=== PATIENT | male | born 1955 | race Caucasian/White ===

== ENCOUNTER → 2016-12-23 | Outpatient (CLI) | payer BC, OTHER ==
[2016-12-23 10:37] LABS: FREE T4 1.12 NG/DL (0.76-1.46)
== END ==
LOC: M LAB 08:44
PROVIDERS: ATTEND Internal Medicine Cardiovascular Disease
DX: E07.9 Disorder of thyroid, unspecified (principal)

== ENCOUNTER → 2017-02-03 | Outpatient (CLI) | payer BC, OTHER ==
[2017-02-03 07:43] LABS: MEAN CORPUSCULAR HGB CONC 32.7 g/dl (32.0-36.5); MEAN CORPUSCULAR VOLUME 88.5 fl (80.0-96.0); RED CELL DISTRIBUTION WIDTH 13.8 % (11.5-14.5); WHITE BLOOD COUNT 6.3 K/mm3 (4.0-10.0)
[2017-02-03 08:20] LABS: ANION GAP 7 MEQ/L (8-16); BLOOD UREA NITROGEN 14 MG/DL (7-18); CALCIUM LEVEL 9.3 MG/DL (8.5-10.1); CARBON DIOXIDE LEVEL 32 MEQ/L (21-32); CHLORIDE LEVEL 102 MEQ/L (98-107); CREATININE FOR GFR 1.19 MG/DL (0.70-1.30); GLOMERULAR FILTRATION RATE > 60.0 (>56); GLUCOSE, FASTING 105 MG/DL (70-105); MAGNESIUM LEVEL 2.2 MG/DL (1.8-2.4); POTASSIUM SERUM 4.3 MEQ/L (3.5-5.1); SODIUM LEVEL 141 MEQ/L (136-145)
== END ==
LOC: M LAB 06:53
PROVIDERS: ATTEND Internal Medicine Cardiovascular Disease
DX: I25.5 Ischemic cardiomyopathy (principal); Z95.810 Presence of automatic (implantable) cardiac defibrillator; Z86.74 Personal history of sudden cardiac arrest; I25.10 Atherosclerotic heart disease of native coronary artery without angina pectoris

== ENCOUNTER 2017-08-13 12:14 | Outpatient (CLI) | payer BC, OTHER ==
[~2017-08-13] VITALS: Ht 165.1 cm; Wt 97.5 kg
[~2017-08-13 12:14] MED LIST: AMIO200T PO; ASPI1TAB PO; ATOR40TA75 PO; ENAL10TA2 PO; MAGN200T PO; METO1TAB7 PO; PRIL20TA2 PO
[2017-08-13] MEDS ORDERED: NS 1,000 ML IV ONE (13:30)
[2017-08-13] MEDS ORDERED: PROPOFOL 200 MG/20 ML VIAL As Ordered ONE (13:38)
[2017-08-13] MEDS ORDERED: LIDOCAINE 1% MDV 20ML VIAL As Ordered ONE (13:38)
[2017-08-13] MEDS ORDERED: PHENYLephrine HCL 500 MCG/5 ML (100MCG/ML) SYRINGE (J2370) As Ordered ONE (14:02)
--- NOTE | 2017-08-13 14:09 | ROOR ---
Patient Name: Maxwell Crystal Procedure Date: 08/13/2017 1:47 PM Date of : 1955 Age: 61 Room: [facility] Gender: Male Note Status: Finalized Procedure: Colonoscopy Indications: High risk colon cancer surveillance: Personal history of colonic polyps, Last colonoscopy: April 2014 Providers: Christofer DAMON MD Referring MD: KODY GARCIA MD Requesting Provider: Medicines: Monitored Anesthesia Care Complications: No immediate complications. Procedure: Pre-Anesthesia Assessment: - The heart rate, respiratory rate, oxygen saturations, blood pressure, adequacy of pulmonary ventilation, and response to care were monitored throughout the procedure. The Colonoscope was introduced through the anus and advanced to the cecum, identified by appendiceal orifice and ileocecal valve. The colonoscopy was performed without difficulty. The patient tolerated the procedure well. The quality of the bowel preparation was good. Findings: The perianal and digital rectal examinations were normal. A diminutive polyp was found in the mid ascending colon. The polyp was sessile. The polyp was removed with a cold snare. Resection and retrieval were complete. Multiple medium-mouthed diverticula were found in the sigmoid colon and descending colon. Small Internal Hemorrhoids. The exam was otherwise without abnormality on direct and retroflexion views. Impression: - One diminutive polyp in the mid ascending colon, removed with a cold snare. Resected and retrieved. - Mild diverticulosis in the sigmoid colon and in the descending colon. - Small Internal Hemorrhoids. - The examination was otherwise normal on direct and retroflexion views. Recommendation: - Repeat colonoscopy in 5 years for surveillance based on personal history of previous adenomatous polyps. Christofer Damon MD Christofer DAMON MD 08/13/2017 2:08:40 PM This report has been signed electronically. Number of Addenda: 0 Note Initiated On: 08/13/2017 1:47 PM Estimated Blood Loss: Estimated blood loss: none.
[2017-08-13 14:43] VITALS: BP 137/77
== END 2017-08-13 14:47 | disposition home or self-care (01) ==
LOC: M OPP 12:14
PROVIDERS: ATTEND Internal Medicine Gastroenterology
DX: Z12.11 Encounter for screening for malignant neoplasm of colon (principal); Z86.010 Personal history of colon polyps; D12.2 Benign neoplasm of ascending colon; K57.30 Diverticulosis of large intestine without perforation or abscess without bleeding; K64.8 Other hemorrhoids; I10 Essential (primary) hypertension; E78.5 Hyperlipidemia, unspecified; Z95.5 Presence of coronary angioplasty implant and graft; Z95.810 Presence of automatic (implantable) cardiac defibrillator; Z86.74 Personal history of sudden cardiac arrest; R12 Heartburn; R06.83 Snoring; Z79.82 Long term (current) use of aspirin; Z79.899 Other long term (current) drug therapy; Z80.1 Family history of malignant neoplasm of trachea, bronchus and lung
CPT/HCPCS: 45385; 88305; J2370

== ENCOUNTER → 2018-02-01 | Outpatient (CLI) | payer BC, OTHER ==
[2018-02-01 08:25] LABS: ANION GAP 9 MEQ/L (8-16); BLOOD UREA NITROGEN 22 MG/DL (7-18); CALCIUM LEVEL 9.1 MG/DL (8.8-10.2); CARBON DIOXIDE LEVEL 27 MEQ/L (21-32); CHLORIDE LEVEL 107 MEQ/L (98-107); CREATININE FOR GFR 1.21 MG/DL (0.70-1.30); GLOMERULAR FILTRATION RATE > 60.0 (>49); GLUCOSE, FASTING 128 MG/DL (70-100); NT-PRO BNP 314 PG/ML (<125); POTASSIUM SERUM 4.3 MEQ/L (3.5-5.1); SODIUM LEVEL 143 MEQ/L (136-145)
== END ==
LOC: M LAB 06:47
DX: I42.9 Cardiomyopathy, unspecified (principal)

== ENCOUNTER → 2018-10-15 | Outpatient (CLI) | payer BC, OTHER | LOC: M WUC 15:35 | DX: J84.10 Pulmonary fibrosis, unspecified (principal); R06.00 Dyspnea, unspecified; Z95.0 Presence of cardiac pacemaker | CPT/HCPCS: 71046 ==

== ENCOUNTER → 2018-12-10 | Outpatient (CLI) | payer BC, OTHER ==
[2018-12-10 13:11] LABS: BLOOD UREA NITROGEN 15 MG/DL (7-18); CALCIUM LEVEL 9.3 MG/DL (8.8-10.2); CARBON DIOXIDE LEVEL 29 MEQ/L (21-32); CHLORIDE LEVEL 105 MEQ/L (98-107); CREATININE FOR GFR 1.02 MG/DL (0.70-1.30); GLOMERULAR FILTRATION RATE > 60.0 (>49); GLUCOSE, FASTING 110 MG/DL (70-100); MAGNESIUM LEVEL 2.6 MG/DL (1.8-2.4); POTASSIUM SERUM 4.4 MEQ/L (3.5-5.1); SODIUM LEVEL 141 MEQ/L (136-145)
== END ==
LOC: M SMT 09:32
PROVIDERS: ATTEND Internal Medicine Cardiovascular Disease
DX: I47.2 Ventricular tachycardia (principal)

== ENCOUNTER → 2019-02-14 | Outpatient (CLI) | payer BC, OTHER ==
[~2019-02-14] MED LIST changes: -ASPI1TAB PO; +ASPI81TA26 PO
[2019-02-14 17:34] LABS: ALBUMIN 4.1 GM/DL (3.2-5.2); ALT/SGPT 31 U/L (12-78); BILIRUBIN,TOTAL 0.5 MG/DL (0.2-1.0); BLOOD UREA NITROGEN 17 MG/DL (7-18); CARBON DIOXIDE LEVEL 30 MEQ/L (21-32); CHLORIDE LEVEL 105 MEQ/L (98-107); GLOMERULAR FILTRATION RATE > 60.0 (>49); GLUCOSE, FASTING 110 MG/DL (70-100); MAGNESIUM LEVEL 2.4 MG/DL (1.8-2.4); POTASSIUM SERUM 4.7 MEQ/L (3.5-5.1); SODIUM LEVEL 141 MEQ/L (136-145); TOTAL PROTEIN 7.1 GM/DL (6.4-8.2)
[2019-02-14 17:39] LABS: BASO % 0.6 % (0.0-1.0); EOS # 0.1 10^3/uL (0.0-0.50); EOS % 1.2 % (0.0-3.0); HEMATOCRIT 50.5 % (42.0-52.0); HEMOGLOBIN 15.9 g/dl (13.5-17.5); LYMPH # 1.9 10^3/uL (1.5-4.5); LYMPH % 26.6 % (24.0-44.0); MEAN CORPUSCULAR HEMOGLOBIN 28.6 pg (27.0-33.0); MEAN CORPUSCULAR HGB CONC 31.5 g/dl (32.0-36.5); MONO # 0.9 10^3/uL (0.0-0.8); MONO % 11.9 % (0.0-5.0); NEUTROPHILS # 4.3 10^3/uL (1.8-7.7); NEUTROPHILS % 59.4 % (36.0-66.0); PLATELET COUNT, AUTOMATED 284 10^3/uL (150-450); RED BLOOD COUNT 5.55 10^6/uL (4.30-6.10); WHITE BLOOD COUNT 7.2 10^3/uL (4.0-10.0)
== END ==
LOC: M WUC 15:13
PROVIDERS: ATTEND Internal Medicine Cardiovascular Disease
DX: I44.7 Left bundle-branch block, unspecified (principal)

== ENCOUNTER → 2019-03-14 | Outpatient (CLI) | payer BC, OTHER ==
--- NOTE | 2019-03-15 07:10 | REP ---
Clinical: Follow up abnormal lung findings. Technique: Axial noncontrast images from the thoracic inlet to the upper abdomen with coronal and sagittal re-formations. Comparison: None. Findings: The bilateral lung park are relatively well aerated, symmetric and essentially clear. Minimal chronic-appearing fibroatelectatic changes at the lingula and adjacent anterior left lower lobe are appreciated. No consolidation, significant nodule or mass lesion identified. No pleural effusion. No pneumothorax. Tracheobronchial tree is patent. No bronchiectasis. No obvious hilar, mediastinal or axillary adenopathy. Mediastinum demonstrates normal thoracic aorta. Heart is upper limits of normal and demonstrates atherosclerotic changes to the coronary arteries and pacemaker. No pericardial effusion. Surrounding musculoskeletal structures are intact. Limited upper abdomen demonstrates cholelithiasis. Impression: No obvious acute cardiopulmonary process appreciated. Electronically Signed by Aston Moreira MD 03/15/2019 07:02 A
== END ==
LOC: M RAD 12:47
PROVIDERS: ATTEND Physician Assistant
DX: R91.8 Other nonspecific abnormal finding of lung field (principal); I25.10 Atherosclerotic heart disease of native coronary artery without angina pectoris; Z95.0 Presence of cardiac pacemaker

== ENCOUNTER → 2019-10-17 | Outpatient (CLI) | payer BC, OTHER ==
--- NOTE | 2019-10-17 15:10 | REP ---
Four views chest: 10/17/2019. Indication: Arrhythmia. Comparison: CT chest dated 03/14/2019 and two-view chest dated 10/15/2019. Findings: There is no air space consolidation, pleural effusion or pneumothorax. Cardiomediastinal silhouette is unremarkable. Left-sided pacer is present with the leads intact. Impression: No acute cardiopulmonary process. Electronically Signed by Joseph Sue DO 10/17/2019 03:02 P
== END ==
LOC: M RAD 14:34
PROVIDERS: ATTEND Internal Medicine Cardiovascular Disease
DX: T82.1 Mechanical complication of cardiac electronic device (principal); X58.XXXD Exposure to other specified factors, subsequent encounter

== ENCOUNTER → 2019-10-31 | Outpatient (CLI) | payer BC, OTHER ==
[2019-10-31 17:55] LABS: BLOOD UREA NITROGEN 15 MG/DL (7-18); CALCIUM LEVEL 9.5 MG/DL (8.8-10.2); CARBON DIOXIDE LEVEL 28 MEQ/L (21-32); CHLORIDE LEVEL 104 MEQ/L (98-107); CREATININE FOR GFR 0.91 MG/DL (0.70-1.30); GLOMERULAR FILTRATION RATE > 60.0 (>49); GLUCOSE, FASTING 96 MG/DL (70-100); POTASSIUM SERUM 4.3 MEQ/L (3.5-5.1); SODIUM LEVEL 143 MEQ/L (136-145)
[2019-10-31 18:07] LABS: HEMATOCRIT 49.6 % (42.0-52.0); HEMOGLOBIN 15.8 g/dl (13.5-17.5); MEAN CORPUSCULAR HEMOGLOBIN 30.1 pg (27.0-33.0); MEAN CORPUSCULAR HGB CONC 31.9 g/dl (32.0-36.5); MEAN CORPUSCULAR VOLUME 94.5 fl (80.0-96.0); PLATELET COUNT, AUTOMATED 250 10^3/uL (150-450); RED BLOOD COUNT 5.25 10^6/uL (4.30-6.10); WHITE BLOOD COUNT 6.7 10^3/uL (4.0-10.0)
== END ==
LOC: M PLALAB 13:08
PROVIDERS: ATTEND Internal Medicine Cardiovascular Disease
DX: T82.120A Displacement of cardiac electrode, initial encounter (principal)

== ENCOUNTER → 2020-01-23 | Outpatient (CLI) | payer OTHER, BC ==
[2020-01-23 13:22] LABS: BLOOD UREA NITROGEN 12 MG/DL (7-18); CALCIUM LEVEL 9.5 MG/DL (8.8-10.2); CARBON DIOXIDE LEVEL 29 MEQ/L (21-32); CHLORIDE LEVEL 107 MEQ/L (98-107); CREATININE FOR GFR 0.93 MG/DL (0.70-1.30); GLOMERULAR FILTRATION RATE > 60.0 (>49); GLUCOSE, FASTING 99 MG/DL (70-100); MAGNESIUM LEVEL 2.3 MG/DL (1.8-2.4); NT-PRO BNP 107 PG/ML (<125); POTASSIUM SERUM 4.7 MEQ/L (3.5-5.1); SODIUM LEVEL 140 MEQ/L (136-145)
== END ==
LOC: M WUC 10:45
PROVIDERS: ATTEND Internal Medicine Cardiovascular Disease
DX: I50.9 Heart failure, unspecified (principal); I48.91 Unspecified atrial fibrillation

== ENCOUNTER → 2020-08-03 | Outpatient (CLI) | payer BC, OTHER ==
[~2020-08-03] MED LIST changes: -AMIO200T PO; +AMIO200T3 PO; +ENAL-36 PO; -ENAL10TA2 PO
[2020-08-03 07:52] LABS: ALBUMIN 3.7 GM/DL (3.2-5.2); ALT/SGPT 23 U/L (12-78); BILIRUBIN,TOTAL 0.9 MG/DL (0.2-1.0); BLOOD UREA NITROGEN 12 MG/DL (7-18); CARBON DIOXIDE LEVEL 28 MEQ/L (21-32); CHLORIDE LEVEL 106 MEQ/L (98-107); CREATININE FOR GFR 0.88 MG/DL (0.70-1.30); GLOMERULAR FILTRATION RATE > 60.0 (>49); GLUCOSE, FASTING 101 MG/DL (70-100); MAGNESIUM LEVEL 2.2 MG/DL (1.8-2.4); NT-PRO BNP 185 PG/ML (<125); POTASSIUM SERUM 4.2 MEQ/L (3.5-5.1); SODIUM LEVEL 141 MEQ/L (136-145); TOTAL PROTEIN 6.5 GM/DL (6.4-8.2)
== END ==
LOC: M LAB 06:25
PROVIDERS: ATTEND Internal Medicine Cardiovascular Disease
DX: I50.42 Chronic combined systolic (congestive) and diastolic (congestive) heart failure (principal); I47.2 Ventricular tachycardia; E78.2 Mixed hyperlipidemia

== ENCOUNTER → 2021-05-30 | Outpatient (CLI) | payer BC, OTHER ==
[2021-05-30 12:56] LABS: ALBUMIN 3.9 GM/DL (3.2-5.2); ALT/SGPT 26 U/L (12-78); BILIRUBIN,TOTAL 0.9 MG/DL (0.2-1.0); BLOOD UREA NITROGEN 12 MG/DL (7-18); CALCIUM LEVEL 9.1 MG/DL (8.8-10.2); CARBON DIOXIDE LEVEL 28 MEQ/L (21-32); CHLORIDE LEVEL 106 MEQ/L (98-107); CHOLESTEROL LEVEL 141 MG/DL (<200); CHOLESTEROL RISK RATIO 2.517 (<5); CREATININE FOR GFR 0.91 MG/DL (0.70-1.30); GLOMERULAR FILTRATION RATE > 60.0 (>49); GLUCOSE, FASTING 101 MG/DL (70-100); HDL CHOLESTEROL 56 MG/DL (>40); LDL CHOLESTEROL 57 MG/DL (<100); NON-HDL-C 85 MG/DL; POTASSIUM SERUM 4.2 MEQ/L (3.5-5.1); SODIUM LEVEL 142 MEQ/L (136-145); TRIGLYCERIDES LEVEL 138 MG/DL (<150)
[2021-05-30 12:57] LABS: THYROID STIMULATING HORMONE 0.425 uIU/ML (0.358-3.740)
== END ==
LOC: M WUC 08:52
PROVIDERS: ATTEND Internal Medicine
DX: E05.90 Thyrotoxicosis, unspecified without thyrotoxic crisis or storm (principal); E78.2 Mixed hyperlipidemia; I10 Essential (primary) hypertension

== ENCOUNTER → 2021-05-30 | Outpatient (CLI) | payer BC, OTHER ==
[2021-05-30 13:00] LABS: ALT/SGPT 26 U/L (12-78); BILIRUBIN,TOTAL 0.9 MG/DL (0.2-1.0); BLOOD UREA NITROGEN 12 MG/DL (7-18); CALCIUM LEVEL 9.3 MG/DL (8.8-10.2); CARBON DIOXIDE LEVEL 27 MEQ/L (21-32); CHLORIDE LEVEL 107 MEQ/L (98-107); CREATININE FOR GFR 0.91 MG/DL (0.70-1.30); GLOMERULAR FILTRATION RATE > 60.0 (>49); GLUCOSE, FASTING 103 MG/DL (70-100); NT-PRO BNP 185 PG/ML (<125); POTASSIUM SERUM 4.3 MEQ/L (3.5-5.1); SODIUM LEVEL 142 MEQ/L (136-145); TOTAL PROTEIN 6.9 GM/DL (6.4-8.2)
== END ==
LOC: M WUC 08:56
PROVIDERS: ATTEND Nurse Practitioner Adult Health
DX: E50 Vitamin A deficiency (principal); I25.5 Ischemic cardiomyopathy; I50.22 Chronic systolic (congestive) heart failure

== ENCOUNTER → 2022-03-06 | Outpatient (CLI) | payer BC, OTHER ==
[~2022-03-06] MED LIST changes: -AMIO200T3 PO; +AMIO200T49 PO
== END ==
LOC: M WUC 15:16
PROVIDERS: ATTEND Physician Assistant
DX: R05.9 Cough, unspecified (principal)

== ENCOUNTER 2022-03-08 10:34 | Emergency (ER) | payer BC, OTHER ==
[~2022-03-08] VITALS: Ht 165.1 cm; Wt 91.4 kg
[2022-03-08] MEDS ORDERED: ENTR1TAB4 PO (10:44)
[2022-03-08] MEDS ORDERED: EZET10TA21 (10:45)
[2022-03-08] MEDS ORDERED: SOTA80TA53 (10:45)
[2022-03-08] MEDS ORDERED: ISOVUE-370 76% 100ML VIAL As Ordered ONE (12:01)
[2022-03-08 12:08] LABS: BASO % 0.3 % (0.0-1.0); EOS # 0.2 10^3/uL (0.0-0.5); EOS % 1.4 % (0.0-3.0); HEMATOCRIT 37.4 % (42.0-52.0); LYMPH # 1.2 10^3/uL (1.5-5.0); LYMPH % 10.4 % (24.0-44.0); MEAN CORPUSCULAR HEMOGLOBIN 29.4 pg (27.0-33.0); MEAN CORPUSCULAR HGB CONC 32.1 g/dl (32.0-36.5); MEAN CORPUSCULAR VOLUME 91.7 fl (80.0-96.0); MONO % 29.1 % (2.0-8.0); NEUTROPHILS # 6.6 10^3/uL (1.5-8.5); NEUTROPHILS % 57.3 % (36.0-66.0); PLATELET COUNT, AUTOMATED 353 10^3/uL (150-450); RED BLOOD COUNT 4.08 10^6/uL (4.30-6.10); WHITE BLOOD COUNT 11.5 10^3/uL (4.0-10.0)
[2022-03-08 12:20] LABS: INR 1.2; PROTHROMBIN TIME 15.6 SECONDS (12.7-14.5)
[2022-03-08 12:21] LABS: PARTIAL THROMBOPLASTIN TIME 37.7 SECONDS (25.9-37.0)
[2022-03-08 12:35] LABS: ALBUMIN 2.4 GM/DL (3.2-5.2); BILIRUBIN,DIRECT 0.4 MG/DL (0.0-0.2); BILIRUBIN,TOTAL 1.1 MG/DL (0.2-1.0); TOTAL PROTEIN 6.2 GM/DL (6.4-8.2)
[2022-03-08 12:54] LABS: MONO # 3.4 10^3/uL (0.0-0.8)
[2022-03-08 17:58] VITALS: BP 143/73
== END 2022-03-08 18:05 | disposition home or self-care (01) ==
LOC: M ED 10:34
DX: R74.01 Elevation of levels of liver transaminase levels (principal); D64.9 Anemia, unspecified; R63.0 Anorexia; R19.7 Diarrhea, unspecified; M79.604 Pain in right leg; M79.605 Pain in left leg; E78.5 Hyperlipidemia, unspecified; K21.9 Gastro-esophageal reflux disease without esophagitis; Z87.442 Personal history of urinary calculi; Z86.79 Personal history of other diseases of the circulatory system; Z95.0 Presence of cardiac pacemaker; Z79.899 Other long term (current) drug therapy
CPT/HCPCS: 36415; 71046; 74177; 76705; 80047; 80076; 81001; 83690; 83880; 85025; 85610; 85730; 86850; 86900; 86901; 87486; 87581; 87633; 87798; 93005; 93970; 99284; Q9967

== ENCOUNTER → 2022-03-11 | Outpatient (REF) | payer BC, OTHER ==
[~2022-03-11] MED LIST changes: +ENTR1TAB4 PO; +EZET10TA21; +SOTA80TA53
== END ==
LOC: M LAB REF 12:49
PROVIDERS: ATTEND Emergency Medicine
DX: R19.7 Diarrhea, unspecified (principal)

== ENCOUNTER → 2022-03-21 | Outpatient (REF) | payer BC, OTHER ==
[2022-03-21 15:56] LABS: FERRITIN 1976 NG/ML (26-388); IRON (FE) 47 UG/DL (65-175); PERCENT SATURATION 27.2 % (19.7-50.0); TOTAL IRON BINDING CAPACITY 173 UG/DL (250-450); TOTAL PROTEIN 7.7 GM/DL (6.4-8.2)
[2022-03-21 16:03] LABS: VITAMIN B12 LEVEL > 2000 PG/ML (247-911)
[2022-03-21 16:14] LABS: HEPATITIS B SURFACE ANTIGEN NEGATIVE (NEGATIVE)
[2022-03-21 16:31] LABS: CA19-9 TUMOR MARKER,CARBOHYDRA 19.8 U/ML (<35.0)
[2022-03-21 16:41] LABS: HEPATITIS B CORE ANTIBODY IGM NEGATIVE (NEGATIVE); HEPATITIS C VIRUS ABY INDEX 0.1 INDEX (<0.8)
[2022-03-25 14:03] LABS: ALBUMIN 3.37 GM/DL (3.29-5.55); ALBUMIN % 43.8 % (55.8-66.1); ALPHA-1-GLOBULIN % 8.6 % (2.9-4.9); ALPHA-1-GLOBULINS 0.66 GM/DL (0.17-0.41); ALPHA-2-GLOBULINS 1.52 GM/DL (0.42-0.99); ALPHA-2-GLOBULINS % 19.8 % (7.1-11.8); BETA-1-GLOBULINS 0.57 GM/DL (0.28-0.60); BETA-1-GLOBULINS % 7.4 % (4.7-7.2); BETA-2-GLOBULINS 0.64 GM/DL (0.19-0.55); BETA-2-GLOBULINS % 8.3 % (3.2-6.5); GAMMA GLOBULIN % 12.1 % (11.1-18.8); GAMMA GLOBULINS 0.93 GM/DL (0.65-1.58)
[2022-03-25 18:08] LABS: FREE KAPPA LIGHT CHAINS SERUM 26.3 mg/L (3.3-19.4); FREE LAMBDA LIGHT CHAINS SERUM 20.4 mg/L (5.7-26.3); KAPPA/LAMBDA RATIO SERUM 1.29 (0.26-1.65)
== END ==
LOC: M LAB REF 15:18
PROVIDERS: ATTEND Internal Medicine
DX: R50.9 Fever, unspecified (principal); D50.9 Iron deficiency anemia, unspecified; R74.01 Elevation of levels of liver transaminase levels; R63.4 Abnormal weight loss

== ENCOUNTER → 2022-03-22 | Outpatient (REF) | payer BC, OTHER ==
[~2022-03-22] MED LIST changes: +ATOR80TA59 PO; -EZET10TA21; +EZET10TA21 PO; +FARX1TAB5 PO; +METO200T28 PO; -SOTA80TA53; +SOTA80TA53 PO
== END ==
LOC: M LAB REF 08:15
PROVIDERS: ATTEND Internal Medicine
DX: R19.7 Diarrhea, unspecified (principal)

== ENCOUNTER 2022-03-28 14:04 | Inpatient (IN) | payer BC, OTHER ==
[~2022-03-28] VITALS: Ht 165.1 cm; Wt 82.4 kg
[~2022-03-28 14:04] MED LIST changes: -ATOR80TA59 PO; -FARX1TAB5 PO; -METO200T28 PO
[2022-03-28] MEDS ORDERED: NS 1,000 ML IV ONE (14:35)
[2022-03-28 14:36] LABS: BASO % 0.3 % (0.0-1.0); EOS # 0.3 10^3/uL (0.0-0.5); EOS % 4.2 % (0.0-3.0); HEMATOCRIT 39.4 % (42.0-52.0); HEMOGLOBIN 12.5 g/dl (13.5-17.5); LYMPH # 1.3 10^3/uL (1.5-5.0); LYMPH % 18.1 % (24.0-44.0); MEAN CORPUSCULAR HEMOGLOBIN 29.3 pg (27.0-33.0); MEAN CORPUSCULAR HGB CONC 31.7 g/dl (32.0-36.5); MEAN CORPUSCULAR VOLUME 92.3 fl (80.0-96.0); MONO # 1.4 10^3/uL (0.0-0.8); MONO % 19.5 % (2.0-8.0); NEUTROPHILS # 4.1 10^3/uL (1.5-8.5); NEUTROPHILS % 55.7 % (36.0-66.0); PLATELET COUNT, AUTOMATED 258 10^3/uL (150-450); RED BLOOD COUNT 4.27 10^6/uL (4.30-6.10); WHITE BLOOD COUNT 7.3 10^3/uL (4.0-10.0)
[2022-03-28 15:15] LABS: BLOOD UREA NITROGEN 17 MG/DL (7-18); CARBON DIOXIDE LEVEL 24 MEQ/L (21-32); CHLORIDE LEVEL 104 MEQ/L (98-107); CREATININE FOR GFR 0.95 MG/DL (0.70-1.30); FREE T4 1.41 NG/DL (0.76-1.46); GLOMERULAR FILTRATION RATE > 60.0 (>49); GLUCOSE, FASTING 94 MG/DL (70-100); POTASSIUM SERUM 4.2 MEQ/L (3.5-5.1); SODIUM LEVEL 139 MEQ/L (136-145); THYROID STIMULATING HORMONE 0.407 uIU/ML (0.358-3.740)
[2022-03-28] MEDS ORDERED: NS 1,540 ML in IV 1 EA IV ONE (15:35)
[2022-03-28 16:31] LABS: RSV AMPLIFICATION NEGATIVE (NEGATIVE)
[2022-03-28] MEDS ORDERED: ATOR80TA59 PO (18:27)
[2022-03-28] MEDS ORDERED: METO200T28 PO (18:27)
[2022-03-28] MEDS ORDERED: FARX1TAB5 PO (18:27)
[2022-03-28] MEDS ORDERED: HOME MED LIST COMPLETE! XX SCH (19:45)
[2022-03-28 23:00] VITALS: BP 132/75
[2022-03-28] MEDS: EZETIMIBE 10MG TABLET (ZETIA) PO SCH (23:35)
[2022-03-28] MEDS: ATORVASTATIN 20 MG TAB PO SCH (23:35)
[2022-03-28] MEDS: SOTALOL HCL 80 MG TAB PO SCH (23:44)
[2022-03-29 04:00] VITALS: BP 100/57
[2022-03-29 05:24] LABS: MEAN CORPUSCULAR HGB CONC 32.3 g/dl (32.0-36.5); MEAN CORPUSCULAR VOLUME 93.1 fl (80.0-96.0); PLATELET COUNT, AUTOMATED 186 10^3/uL (150-450); RED BLOOD COUNT 3.33 10^6/uL (4.30-6.10)
[2022-03-29 05:40] LABS: ALBUMIN 2.2 GM/DL (3.2-5.2); ALT/SGPT 21 U/L (12-78); BILIRUBIN,TOTAL 0.7 MG/DL (0.2-1.0); BLOOD UREA NITROGEN 13 MG/DL (7-18); CALCIUM LEVEL 7.8 MG/DL (8.8-10.2); CARBON DIOXIDE LEVEL 23 MEQ/L (21-32); CHLORIDE LEVEL 110 MEQ/L (98-107); CREATININE FOR GFR 0.59 MG/DL (0.70-1.30); GLOMERULAR FILTRATION RATE > 60.0 (>49); GLUCOSE, FASTING 70 MG/DL (70-100); MAGNESIUM LEVEL 1.6 MG/DL (1.8-2.4); SODIUM LEVEL 145 MEQ/L (136-145); TOTAL PROTEIN 5.1 GM/DL (6.4-8.2)
[2022-03-29] MEDS ORDERED: MAGNESIUM OXIDE 400MG TAB (MAG-OX) PO ONE (06:00)
[2022-03-29 08:00] VITALS: BP 102/55
[2022-03-29] MEDS ORDERED: MAG SULF 1GM/100ML (MAG RUN) 1 GM in IV 1 EA IV ONE (08:00)
[2022-03-29] MEDS: OMEPRAZOLE 20MG CAP PO SCH (08:19)
[2022-03-29] MEDS: ASPIRIN 81MG ENTERIC TABLET PO SCH (08:19)
[2022-03-29] MEDS: MAGNESIUM OXIDE 400MG TAB (MAG-OX) PO SCH (08:20)
[2022-03-29] MEDS: ENOXAPARIN 40MG/0.4ML SYRINGE (J1650 PER 10MG) SC SCH (08:21)
[2022-03-29] MEDS: SOTALOL HCL 80 MG TAB PO SCH ×2 (08:23→21:00)
[2022-03-29 12:00] VITALS: BP 96/56
[2022-03-29 16:00] VITALS: BP 102/57
[2022-03-29 20:00] VITALS: BP 119/66
[2022-03-29] MEDS: ATORVASTATIN 20 MG TAB PO SCH (21:19)
[2022-03-29] MEDS: EZETIMIBE 10MG TABLET (ZETIA) PO SCH (21:19)
[2022-03-30] VITALS: BP 101/57
[2022-03-30 04:00] VITALS: BP 108/58
[2022-03-30 06:44] LABS: BASO % 0.2 % (0.0-1.0); EOS # 0.3 10^3/uL (0.0-0.5); EOS % 5.2 % (0.0-3.0); HEMATOCRIT 32.2 % (42.0-52.0); HEMOGLOBIN 10.2 g/dl (13.5-17.5); LYMPH # 1.3 10^3/uL (1.5-5.0); LYMPH % 25.1 % (24.0-44.0); MEAN CORPUSCULAR HEMOGLOBIN 29.4 pg (27.0-33.0); MEAN CORPUSCULAR HGB CONC 31.7 g/dl (32.0-36.5); MEAN CORPUSCULAR VOLUME 92.8 fl (80.0-96.0); MONO # 1.4 10^3/uL (0.0-0.8); NEUTROPHILS # 2.2 10^3/uL (1.5-8.5); NEUTROPHILS % 41.4 % (36.0-66.0); PLATELET COUNT, AUTOMATED 189 10^3/uL (150-450); RED BLOOD COUNT 3.47 10^6/uL (4.30-6.10); WHITE BLOOD COUNT 5.2 10^3/uL (4.0-10.0)
[2022-03-30 07:11] LABS: BLOOD UREA NITROGEN 10 MG/DL (7-18); CALCIUM LEVEL 8.4 MG/DL (8.8-10.2); CARBON DIOXIDE LEVEL 27 MEQ/L (21-32); CHLORIDE LEVEL 109 MEQ/L (98-107); GLOMERULAR FILTRATION RATE > 60.0 (>49); GLUCOSE, FASTING 79 MG/DL (70-100); SODIUM LEVEL 144 MEQ/L (136-145)
[2022-03-30 08:00] VITALS: BP 101/57
[2022-03-30] MEDS: SOTALOL HCL 80 MG TAB PO SCH ×3 (08:58→20:07)
[2022-03-30] MEDS: ASPIRIN 81MG ENTERIC TABLET PO SCH (09:01)
[2022-03-30] MEDS: ENOXAPARIN 40MG/0.4ML SYRINGE (J1650 PER 10MG) SC SCH (09:01)
[2022-03-30] MEDS: OMEPRAZOLE 20MG CAP PO SCH (09:01)
[2022-03-30] MEDS: MAGNESIUM OXIDE 400MG TAB (MAG-OX) PO SCH (09:01)
[2022-03-30 12:00] VITALS: BP 100/60
[2022-03-30 16:00] VITALS: BP 121/60
[2022-03-30 20:00] VITALS: BP 112/56
[2022-03-30] MEDS: EZETIMIBE 10MG TABLET (ZETIA) PO SCH (20:07)
[2022-03-30] MEDS: ATORVASTATIN 20 MG TAB PO SCH (20:07)
[2022-03-31 04:00] VITALS: BP 108/57
[2022-03-31 06:06] LABS: BASO % 0.4 % (0.0-1.0); EOS # 0.2 10^3/uL (0.0-0.5); EOS % 4.9 % (0.0-3.0); HEMATOCRIT 33.2 % (42.0-52.0); HEMOGLOBIN 10.3 g/dl (13.5-17.5); LYMPH # 1.3 10^3/uL (1.5-5.0); LYMPH % 25.4 % (24.0-44.0); MEAN CORPUSCULAR HEMOGLOBIN 28.8 pg (27.0-33.0); MEAN CORPUSCULAR VOLUME 92.7 fl (80.0-96.0); MONO # 1.4 10^3/uL (0.0-0.8); NEUTROPHILS % 40.5 % (36.0-66.0); PLATELET COUNT, AUTOMATED 178 10^3/uL (150-450); RED BLOOD COUNT 3.58 10^6/uL (4.30-6.10); WHITE BLOOD COUNT 4.9 10^3/uL (4.0-10.0)
[2022-03-31 06:32] LABS: BLOOD UREA NITROGEN 10 MG/DL (7-18); CALCIUM LEVEL 8.4 MG/DL (8.8-10.2); CARBON DIOXIDE LEVEL 28 MEQ/L (21-32); CHLORIDE LEVEL 111 MEQ/L (98-107); CREATININE FOR GFR 0.62 MG/DL (0.70-1.30); GLOMERULAR FILTRATION RATE > 60.0 (>49); GLUCOSE, FASTING 83 MG/DL (70-100); POTASSIUM SERUM 4.4 MEQ/L (3.5-5.1); SODIUM LEVEL 147 MEQ/L (136-145)
[2022-03-31 08:00] VITALS: BP 108/58
[2022-03-31] MEDS ORDERED: E-Z-PAQUE 96% w/w SUSP 176GM BTL As Ordered ONE (08:28)
[2022-03-31] MEDS ORDERED: E-Z-HD 98% w/w 340GM SUSP BTL As Ordered ONE (08:28)
[2022-03-31] MEDS ORDERED: E-Z-GAS II EFFERVESCENT PACKET (SODIUM BICARB./CITRIC ACID/SIMETHICONE) As Ordered ONE (08:28)
[2022-03-31] MEDS: ENOXAPARIN 40MG/0.4ML SYRINGE (J1650 PER 10MG) SC SCH (08:44)
[2022-03-31] MEDS: SOTALOL HCL 80 MG TAB PO SCH (11:47)
[2022-03-31] MEDS: ASPIRIN 81MG ENTERIC TABLET PO SCH (11:47)
[2022-03-31] MEDS: OMEPRAZOLE 20MG CAP PO SCH ×2 (11:48→20:25)
[2022-03-31] MEDS: MAGNESIUM OXIDE 400MG TAB (MAG-OX) PO SCH (11:48)
[2022-03-31 12:00] VITALS: BP 104/63
[2022-03-31 20:00] VITALS: BP 117/56
[2022-03-31] MEDS: EZETIMIBE 10MG TABLET (ZETIA) PO SCH (20:25)
[2022-03-31] MEDS: ATORVASTATIN 20 MG TAB PO SCH (20:25)
[2022-03-31] MEDS: SOTALOL 40MG PER 1/2 TABLET PO SCH (20:32)
[2022-04-01] VITALS (9 sets, daily range): BP systolic 96–150; BP diastolic 52–70
[2022-04-01 05:37] LABS: BASO % 0.2 % (0.0-1.0); EOS # 0.2 10^3/uL (0.0-0.5); EOS % 4.3 % (0.0-3.0); HEMATOCRIT 32.9 % (42.0-52.0); HEMOGLOBIN 10.3 g/dl (13.5-17.5); LYMPH # 1.4 10^3/uL (1.5-5.0); LYMPH % 28.1 % (24.0-44.0); MEAN CORPUSCULAR HEMOGLOBIN 29.3 pg (27.0-33.0); MEAN CORPUSCULAR HGB CONC 31.3 g/dl (32.0-36.5); MEAN CORPUSCULAR VOLUME 93.7 fl (80.0-96.0); MONO # 1.3 10^3/uL (0.0-0.8); MONO % 26.2 % (2.0-8.0); NEUTROPHILS % 40.4 % (36.0-66.0); PLATELET COUNT, AUTOMATED 183 10^3/uL (150-450); RED BLOOD COUNT 3.51 10^6/uL (4.30-6.10); WHITE BLOOD COUNT 4.8 10^3/uL (4.0-10.0)
[2022-04-01 05:56] LABS: BLOOD UREA NITROGEN 11 MG/DL (7-18); CALCIUM LEVEL 8.7 MG/DL (8.8-10.2); CARBON DIOXIDE LEVEL 29 MEQ/L (21-32); CHLORIDE LEVEL 107 MEQ/L (98-107); CREATININE FOR GFR 0.55 MG/DL (0.70-1.30); GLOMERULAR FILTRATION RATE > 60.0 (>49); GLUCOSE, FASTING 76 MG/DL (70-100); POTASSIUM SERUM 4.1 MEQ/L (3.5-5.1); SODIUM LEVEL 145 MEQ/L (136-145)
[2022-04-01] MEDS: MAGNESIUM OXIDE 400MG TAB (MAG-OX) PO SCH (08:51)
[2022-04-01] MEDS: ASPIRIN 81MG ENTERIC TABLET PO SCH (08:51)
[2022-04-01] MEDS: OMEPRAZOLE 20MG CAP PO SCH ×2 (08:52→21:06)
[2022-04-01] MEDS: SOTALOL 40MG PER 1/2 TABLET PO SCH ×2 (08:52→21:05)
[2022-04-01] MEDS: ENOXAPARIN 40MG/0.4ML SYRINGE (J1650 PER 10MG) SC SCH (08:53)
[2022-04-01] MEDS: ATORVASTATIN 20 MG TAB PO SCH (21:05)
[2022-04-01] MEDS: EZETIMIBE 10MG TABLET (ZETIA) PO SCH (21:05)
[2022-04-01] MEDS ORDERED: SOTALOL 40MG PER 1/2 TABLET PO ONE (22:30)
[2022-04-01 22:42] LABS: BLOOD UREA NITROGEN 14 MG/DL (7-18); CALCIUM LEVEL 8.3 MG/DL (8.8-10.2); CARBON DIOXIDE LEVEL 27 MEQ/L (21-32); CHLORIDE LEVEL 106 MEQ/L (98-107); CREATININE FOR GFR 0.68 MG/DL (0.70-1.30); GLOMERULAR FILTRATION RATE > 60.0 (>49); GLUCOSE, FASTING 100 MG/DL (70-100); MAGNESIUM LEVEL 1.7 MG/DL (1.8-2.4); POTASSIUM SERUM 3.5 MEQ/L (3.5-5.1); SODIUM LEVEL 142 MEQ/L (136-145)
[2022-04-01] MEDS ORDERED: MAG SULF 1GM/100ML (MAG RUN) 1 GM in IV 1 EA IV ONE (23:05)
[2022-04-02] VITALS: BP 108/57
[2022-04-02] MEDS ORDERED: MAG SULF 1GM/100ML (MAG RUN) 1 GM in IV 1 EA IV ONE (00:05)
[2022-04-02 04:00] VITALS: BP 104/61
[2022-04-02 06:19] LABS: HEMATOCRIT 32.8 % (42.0-52.0); HEMOGLOBIN 10.4 g/dl (13.5-17.5); MEAN CORPUSCULAR HEMOGLOBIN 29.1 pg (27.0-33.0); MEAN CORPUSCULAR HGB CONC 31.7 g/dl (32.0-36.5); MEAN CORPUSCULAR VOLUME 91.9 fl (80.0-96.0); PLATELET COUNT, AUTOMATED 183 10^3/uL (150-450); RED BLOOD COUNT 3.57 10^6/uL (4.30-6.10); WHITE BLOOD COUNT 5.2 10^3/uL (4.0-10.0)
[2022-04-02 06:38] LABS: BLOOD UREA NITROGEN 13 MG/DL (7-18); CALCIUM LEVEL 8.2 MG/DL (8.8-10.2); CARBON DIOXIDE LEVEL 27 MEQ/L (21-32); CHLORIDE LEVEL 105 MEQ/L (98-107); CREATININE FOR GFR 0.59 MG/DL (0.70-1.30); GLOMERULAR FILTRATION RATE > 60.0 (>49); GLUCOSE, FASTING 97 MG/DL (70-100); MAGNESIUM LEVEL 2.3 MG/DL (1.8-2.4); POTASSIUM SERUM 3.3 MEQ/L (3.5-5.1); SODIUM LEVEL 140 MEQ/L (136-145)
[2022-04-02 08:00] VITALS: BP 129/71
[2022-04-02] MEDS ORDERED: SOTALOL HCL 80 MG TAB PO SCH (09:00)
[2022-04-02] MEDS: ASPIRIN 81MG ENTERIC TABLET PO SCH (10:12)
[2022-04-02] MEDS: OMEPRAZOLE 20MG CAP PO SCH ×2 (10:12→20:40)
[2022-04-02] MEDS: ENOXAPARIN 40MG/0.4ML SYRINGE (J1650 PER 10MG) SC SCH (10:13)
[2022-04-02] MEDS: MAGNESIUM OXIDE 400MG TAB (MAG-OX) PO SCH (10:13)
[2022-04-02] MEDS ORDERED: PILL CUTTER 1 EACH XX PRN (14:15)
[2022-04-02 17:07] VITALS: BP 112/89
[2022-04-02] MEDS: ATORVASTATIN 20 MG TAB PO SCH (20:40)
[2022-04-02] MEDS: EZETIMIBE 10MG TABLET (ZETIA) PO SCH (20:41)
[2022-04-02] MEDS: SOTALOL HCL 80 MG TAB PO SCH (20:54)
[2022-04-02 22:00] VITALS: BP 106/61
[2022-04-03] VITALS (8 sets, daily range): BP systolic 11–125; BP diastolic 60–80
[2022-04-03 06:03] LABS: HEMATOCRIT 31.2 % (42.0-52.0); HEMOGLOBIN 9.9 g/dl (13.5-17.5); MEAN CORPUSCULAR HEMOGLOBIN 29.6 pg (27.0-33.0); MEAN CORPUSCULAR HGB CONC 31.7 g/dl (32.0-36.5); MEAN CORPUSCULAR VOLUME 93.1 fl (80.0-96.0); PLATELET COUNT, AUTOMATED 175 10^3/uL (150-450); RED BLOOD COUNT 3.35 10^6/uL (4.30-6.10); WHITE BLOOD COUNT 4.8 10^3/uL (4.0-10.0)
[2022-04-03 06:29] LABS: BLOOD UREA NITROGEN 13 MG/DL (7-18); CALCIUM LEVEL 8.5 MG/DL (8.8-10.2); CARBON DIOXIDE LEVEL 28 MEQ/L (21-32); CHLORIDE LEVEL 107 MEQ/L (98-107); GLOMERULAR FILTRATION RATE > 60.0 (>49); GLUCOSE, FASTING 76 MG/DL (70-100); MAGNESIUM LEVEL 2.3 MG/DL (1.8-2.4); POTASSIUM SERUM 3.9 MEQ/L (3.5-5.1); SODIUM LEVEL 144 MEQ/L (136-145)
[2022-04-03] MEDS: ASPIRIN 81MG ENTERIC TABLET PO SCH (09:07)
[2022-04-03] MEDS: MAGNESIUM OXIDE 400MG TAB (MAG-OX) PO SCH (09:07)
[2022-04-03] MEDS: SOTALOL HCL 80 MG TAB PO SCH ×2 (09:09→20:09)
[2022-04-03] MEDS: OMEPRAZOLE 20MG CAP PO SCH ×2 (09:11→20:07)
[2022-04-03] MEDS: ENOXAPARIN 40MG/0.4ML SYRINGE (J1650 PER 10MG) SC SCH ×2 (09:11→17:39)
[2022-04-03] MEDS ORDERED: propofoL 200 MG/20 ML VIAL As Ordered ONE (15:20)
[2022-04-03] MEDS ORDERED: LIDOCAINE 2% 100MG/5ML SDV (FOR ANES.) As Ordered ONE (15:20)
[2022-04-03] MEDS ORDERED: fentaNYL 100 MCG/2 ML INJECTION As Ordered ONE (15:47)
[2022-04-03] MEDS: LACTULOSE 20 GM/30 ML SYRUP UD PO SCH ×3 (17:39→23:14)
[2022-04-03] MEDS: EZETIMIBE 10MG TABLET (ZETIA) PO SCH (20:08)
[2022-04-03] MEDS: ATORVASTATIN 20 MG TAB PO SCH (20:08)
[2022-04-04 01:30] VITALS: BP 122/76
[2022-04-04] MEDS: LACTULOSE 20 GM/30 ML SYRUP UD PO SCH ×2 (05:17→09:33)
[2022-04-04 05:30] VITALS: BP 121/75
[2022-04-04 06:13] LABS: HEMATOCRIT 37.6 % (42.0-52.0); HEMOGLOBIN 11.8 g/dl (13.5-17.5); MEAN CORPUSCULAR HEMOGLOBIN 29.3 pg (27.0-33.0); MEAN CORPUSCULAR HGB CONC 31.4 g/dl (32.0-36.5); MEAN CORPUSCULAR VOLUME 93.3 fl (80.0-96.0); PLATELET COUNT, AUTOMATED 228 10^3/uL (150-450); RED BLOOD COUNT 4.03 10^6/uL (4.30-6.10); WHITE BLOOD COUNT 6.3 10^3/uL (4.0-10.0)
[2022-04-04 06:38] LABS: BLOOD UREA NITROGEN 13 MG/DL (7-18); CALCIUM LEVEL 9.3 MG/DL (8.8-10.2); CARBON DIOXIDE LEVEL 25 MEQ/L (21-32); CHLORIDE LEVEL 103 MEQ/L (98-107); GLOMERULAR FILTRATION RATE > 60.0 (>49); GLUCOSE, FASTING 96 MG/DL (70-100); MAGNESIUM LEVEL 2.1 MG/DL (1.8-2.4); SODIUM LEVEL 141 MEQ/L (136-145)
[2022-04-04] MEDS: ENOXAPARIN 40MG/0.4ML SYRINGE (J1650 PER 10MG) SC SCH (09:00)
[2022-04-04] MEDS: OMEPRAZOLE 20MG CAP PO SCH ×2 (09:33→20:25)
[2022-04-04] MEDS: MAGNESIUM OXIDE 400MG TAB (MAG-OX) PO SCH (09:33)
[2022-04-04] MEDS: ASPIRIN 81MG ENTERIC TABLET PO SCH (09:33)
[2022-04-04] MEDS: SOTALOL HCL 80 MG TAB PO SCH ×2 (09:35→20:27)
[2022-04-04 14:00] VITALS: BP 132/75
[2022-04-04] MEDS ORDERED: LIDOCAINE 2% MDV 20ML VIAL As Ordered ONE (15:04)
[2022-04-04] MEDS ORDERED: ePHEDrine SULFATE 25 MG/5 ML(5MG/ML) SYRINGE As Ordered ONE (15:07)
[2022-04-04] MEDS ORDERED: propofoL 200 MG/20 ML VIAL As Ordered ONE (15:32)
[2022-04-04 16:15] VITALS: BP 124/82
[2022-04-04 17:39] LABS: CLOSTRIDIUM DIFFICILE PCR NEGATIVE (NEGATIVE)
[2022-04-04] MEDS: EZETIMIBE 10MG TABLET (ZETIA) PO SCH (20:25)
[2022-04-04] MEDS: ATORVASTATIN 20 MG TAB PO SCH (20:25)
[2022-04-04 22:00] VITALS: BP 115/69
[2022-04-05 06:00] VITALS: BP 109/59
[2022-04-05 06:39] LABS: MEAN CORPUSCULAR HEMOGLOBIN 29.8 pg (27.0-33.0); MEAN CORPUSCULAR VOLUME 93.2 fl (80.0-96.0); PLATELET COUNT, AUTOMATED 170 10^3/uL (150-450); RED BLOOD COUNT 3.22 10^6/uL (4.30-6.10); WHITE BLOOD COUNT 4.8 10^3/uL (4.0-10.0)
[2022-04-05 06:41] LABS: HEMOGLOBIN 9.6 g/dl (13.5-17.5)
[2022-04-05 06:54] LABS: BLOOD UREA NITROGEN 9 MG/DL (7-18); CALCIUM LEVEL 8.5 MG/DL (8.8-10.2); CARBON DIOXIDE LEVEL 25 MEQ/L (21-32); CHLORIDE LEVEL 107 MEQ/L (98-107); GLOMERULAR FILTRATION RATE > 60.0 (>49); GLUCOSE, FASTING 68 MG/DL (70-100); MAGNESIUM LEVEL 1.9 MG/DL (1.8-2.4); POTASSIUM SERUM 3.4 MEQ/L (3.5-5.1); SODIUM LEVEL 143 MEQ/L (136-145)
[2022-04-05] MEDS ORDERED: POTASSIUM CHLORIDE 10% LIQ 20 MEQ/15 ML UDC PO ONE (07:30)
[2022-04-05] MEDS: ENOXAPARIN 40MG/0.4ML SYRINGE (J1650 PER 10MG) SC SCH (08:17)
[2022-04-05] MEDS: MAGNESIUM OXIDE 400MG TAB (MAG-OX) PO SCH (08:17)
[2022-04-05 08:19] VITALS: BP 114/70
[2022-04-05] MEDS: ASPIRIN 81MG ENTERIC TABLET PO SCH (08:19)
[2022-04-05] MEDS: OMEPRAZOLE 20MG CAP PO SCH (08:19)
[2022-04-05] MEDS: SOTALOL HCL 80 MG TAB PO SCH (08:19)
[2022-04-05] MEDS ORDERED: SOTA120T PO (08:25)
[2022-04-05] MEDS ORDERED: PRIL20TA2 PO (08:26)
== END 2022-04-05 10:55 | disposition home or self-care (01) | DRG 861 ==
LOC: M ED 14:04 → M ED INP 19:05 → CANRESERV 21:07 → ENRESERV 21:07 → M PCU 23:02 → M MSPAV 04-02 17:03
PROVIDERS: ADMIT Internal Medicine Nephrology; ATTEND Family Medicine
PROC: 0DB68ZX Excision of Stomach, Via Natural or Artificial Opening Endoscopic, Diagnostic (ICD-10-PCS; 2022-04-03)
PROC: 0DBM8ZX Excision of Descending Colon, Via Natural or Artificial Opening Endoscopic, Diagnostic (ICD-10-PCS; principal; 2022-04-04 15:30)
DX: R68.81 Early satiety (principal); I47.2 Ventricular tachycardia; I11.0 Hypertensive heart disease with heart failure; E83.42 Hypomagnesemia; I50.42 Chronic combined systolic (congestive) and diastolic (congestive) heart failure; I95.1 Orthostatic hypotension; E78.5 Hyperlipidemia, unspecified; E86.0 Dehydration; I25.10 Atherosclerotic heart disease of native coronary artery without angina pectoris; K21.9 Gastro-esophageal reflux disease without esophagitis; K57.90 Diverticulosis of intestine, part unspecified, without perforation or abscess without bleeding; K80.20 Calculus of gallbladder without cholecystitis without obstruction; R19.7 Diarrhea, unspecified; R53.83 Other fatigue; R63.0 Anorexia; R63.4 Abnormal weight loss; Z95.5 Presence of coronary angioplasty implant and graft; Z95.810 Presence of automatic (implantable) cardiac defibrillator; K44.9 Diaphragmatic hernia without obstruction or gangrene; Z79.82 Long term (current) use of aspirin; Z79.899 Other long term (current) drug therapy; K64.8 Other hemorrhoids

== ENCOUNTER → 2022-04-16 | Outpatient (REF) | payer BC, OTHER ==
[~2022-04-16] MED LIST changes: +ATOR80TA59 PO; +FARX1TAB5 PO; +METO200T28 PO; +SOTA120T PO
[2022-04-16 13:56] LABS: AMORPHOUS SEDIMENT SMALL (NEGATIVE); APPEARANCE, URINE HAZY (CLEAR); BACTERIA, URINE AUTO NEGATIVE (NEGATIVE); BILIRUBIN, URINE AUTO NEGATIVE (NEGATIVE); BLOOD, URINE BLOOD NEGATIVE (NEGATIVE); COLOR, URINE YELLOW (YELLOW); GLUCOSE, URINE (UA) AUTO NEGATIVE (NEGATIVE); KETONE, URINE AUTO TRACE mg/dL (NEGATIVE); LEUKOCYTE ESTERASE, URINE AUTO NEGATIVE (NEGATIVE); NITRITE, URINE AUTO NEGATIVE (NEGATIVE); PROTEIN, URINE AUTO 1+ mg/dL (NEGATIVE); RBC, URINE AUTO 0 /HPF (0-3); SQUAMOUS EPITHELIAL CELL UR AU 4 /HPF (0-6); UROBILINOGEN, URINE AUTO 0.2 mg/dL (0.0-2.0); WBC, URINE AUTO 6 /HPF (0-3)
[2022-04-16 14:04] LABS: TOTAL PROTEIN,RANDOM URINE 51.2 MG/DL (0.0-12.0)
[2022-04-16 14:08] LABS: PERCENT SATURATION 20.4 % (19.7-50.0)
[2022-04-16 14:14] LABS: INR 0.98; PROTHROMBIN TIME 13.4 SECONDS (12.7-14.5)
[2022-04-16 14:19] LABS: D-DIMER QUANT 1113.49 ng/ml (<500)
[2022-04-21 17:07] LABS: ANA (HEP2) Negative (.); ANTI-MITOCHONDRIAL ANTIBODY <20.0 Units (0.0-20.0)
== END ==
LOC: M LAB REF 12:40
PROVIDERS: ATTEND Internal Medicine
DX: R63.0 Anorexia (principal); D64.9 Anemia, unspecified; R74.01 Elevation of levels of liver transaminase levels; R63.4 Abnormal weight loss; R19.7 Diarrhea, unspecified

== ENCOUNTER → 2022-05-28 | Outpatient (REF) | payer OTHER, BC ==
[2022-05-28 13:10] LABS: PERCENT SATURATION 19.6 % (19.7-50.0)
== END ==
LOC: M LAB REF 12:21
PROVIDERS: ATTEND Internal Medicine
DX: Z13.89 Encounter for screening for other disorder (principal)

== ENCOUNTER → 2023-01-22 | Outpatient (CLI) | payer OTHER, BC ==
[~2023-01-22] MED LIST changes: -ENAL-36 PO; +ENAL1TAB50 PO
[2023-01-22 17:58] LABS: HEMATOCRIT 44.2 % (42.0-52.0); HEMOGLOBIN 14.4 g/dl (13.5-17.5); MEAN CORPUSCULAR HEMOGLOBIN 29.8 pg (27.0-33.0); MEAN CORPUSCULAR HGB CONC 32.6 g/dl (32.0-36.5); MEAN CORPUSCULAR VOLUME 91.3 fl (80.0-96.0); PLATELET COUNT, AUTOMATED 128 10^3/uL (150-450); RED BLOOD COUNT 4.84 10^6/uL (4.30-6.10); WHITE BLOOD COUNT 5.3 10^3/uL (4.0-10.0)
[2023-01-22 17:59] LABS: BLOOD UREA NITROGEN 13 MG/DL (9-23); CALCIUM LEVEL 8.8 MG/DL (8.3-10.6); CARBON DIOXIDE LEVEL 29 MMOL/L (20-31); CHLORIDE LEVEL 106 MMOL/L (98-107); GLOMERULAR FILTRATION RATE > 60.0 (>49); GLUCOSE, FASTING 110 MG/DL (74-106); POTASSIUM SERUM 4.1 MMOL/L (3.5-5.1); SODIUM LEVEL 140 MMOL/L (136-145)
== END ==
LOC: M WUC 11:22
PROVIDERS: ATTEND Internal Medicine Cardiovascular Disease
DX: I50.42 Chronic combined systolic (congestive) and diastolic (congestive) heart failure (principal); I25.10 Atherosclerotic heart disease of native coronary artery without angina pectoris

== ENCOUNTER 2023-01-31 20:01 | Emergency (ER) | payer BC, OTHER, MEDICARE ==
[~2023-01-31] VITALS: Ht 165.1 cm; Wt 98.2 kg
[2023-01-31] MEDS ORDERED: NS 500 ML IV ONE (20:30)
[2023-01-31] MEDS ORDERED: ASPIRIN 81MG CHEW TABLET PO ONE (20:35)
[2023-01-31 20:38] VITALS: BP 135/76
[2023-01-31 20:44] LABS: HEMATOCRIT 46.3 % (42.0-52.0); HEMOGLOBIN 15.4 g/dl (13.5-17.5); MEAN CORPUSCULAR HEMOGLOBIN 29.8 pg (27.0-33.0); MEAN CORPUSCULAR HGB CONC 33.3 g/dl (32.0-36.5); MEAN CORPUSCULAR VOLUME 89.6 fl (80.0-96.0); PLATELET COUNT, AUTOMATED 135 10^3/uL (150-450); RED BLOOD COUNT 5.17 10^6/uL (4.30-6.10)
[2023-01-31 21:14] LABS: RSV AMPLIFICATION NEGATIVE (NEGATIVE)
[2023-01-31 21:16] LABS: CK-MB VALUE MASS < 1.0 NG/ML (<3.6)
[2023-01-31 21:18] LABS: ATYPICAL LYMPH 4 % (0-5); EOSINOPHILS 1 % (0-3); LYMPHOCYTES 29 % (16-44); MONOCYTES 9 % (0-5); NEUTROPHILS 55 % (28-66); PLATELET ESTIMATE DECREASED (NORMAL)
[2023-01-31 21:20] LABS: CPK CREATINE PHOSPHOKINASE 78 U/L (46-171); MB/CK RELATIVE INDEX 1.28 (< OR =4)
[2023-01-31] MEDS ORDERED: valACYclovir HCL 500 MG TAB PO ONE (21:25)
[2023-01-31] MEDS ORDERED: methylPREDNISolone 125MG 2ML VIAL IV ONE (21:25)
[2023-01-31] MEDS ORDERED: VALA1TAB5 PO (21:28)
[2023-01-31] MEDS ORDERED: PRED20TA PO (21:28)
[2023-01-31] MEDS ORDERED: LACRILUBE (AKWA TEARS) OPHTH OINT 3.5GM OD ONE (21:45)
== END 2023-01-31 22:10 | disposition home or self-care (01) ==
LOC: M ED 20:01
DX: G51.0 Bell's palsy (principal); I49.01 Ventricular fibrillation; I10 Essential (primary) hypertension; E78.5 Hyperlipidemia, unspecified; K21.9 Gastro-esophageal reflux disease without esophagitis; F10.10 Alcohol abuse, uncomplicated; Z86.79 Personal history of other diseases of the circulatory system; Z95.0 Presence of cardiac pacemaker; Z79.82 Long term (current) use of aspirin; Z79.02 Long term (current) use of antithrombotics/antiplatelets; Z79.899 Other long term (current) drug therapy
CPT/HCPCS: 70450; 71045; 80047; 82550; 82553; 84484; 85025; 85730; 87631; 93005; 93041; 94760; 96374; 99284; J2930

== ENCOUNTER → 2023-11-27 | Outpatient (CLI) | payer MEDICARE, BC, OTHER ==
[~2023-11-27] MED LIST changes: +PRED20TA PO; +VALA1TAB5 PO
== END ==
LOC: M WUC 12:40
PROVIDERS: ATTEND Internal Medicine
DX: M25.552 Pain in left hip (principal)

== ENCOUNTER → 2024-03-31 | Outpatient (CLI) | payer MEDICARE, BC ==
[~2024-03-31] MED LIST changes: +METO200T15 PO; -METO200T28 PO
== END ==
LOC: M RAD 14:06
PROVIDERS: ATTEND Internal Medicine
DX: J34.89 Other specified disorders of nose and nasal sinuses (principal)

== ENCOUNTER → 2024-05-06 | Outpatient (CLI) | payer MEDICARE, BC ==
[2024-05-06 11:42] LABS: ALBUMIN 4.2 G/DL (3.2-5.2); ALKALINE PHOSPHATASE 93 U/L (46-116); ALT/SGPT 14 U/L (7.0-40); AST/SGOT 14 U/L (<34); BILIRUBIN,TOTAL 1.2 MG/DL (0.3-1.2); BLOOD UREA NITROGEN 25 MG/DL (9-23); CALCIUM LEVEL 9.5 MG/DL (8.3-10.6); CARBON DIOXIDE LEVEL 32 MMOL/L (20-31); CHLORIDE LEVEL 101 MMOL/L (98-107); CREATININE FOR GFR 1.05 MG/DL (0.70-1.30); GLOMERULAR FILTRATION RATE > 60.0 (>49); GLUCOSE, FASTING 111 MG/DL (74-106); MAGNESIUM LEVEL 1.9 MG/DL (1.8-2.4); POTASSIUM SERUM 4.2 MMOL/L (3.5-5.1); SODIUM LEVEL 137 MMOL/L (136-145); TOTAL PROTEIN 6.9 G/DL (5.7-8.2)
[2024-05-08 03:12] LABS: LDL DIRECT 56 mg/dL (<100)
== END ==
LOC: M WUC 08:23
PROVIDERS: ATTEND Internal Medicine Cardiovascular Disease
DX: I49.9 Cardiac arrhythmia, unspecified (principal); I50.42 Chronic combined systolic (congestive) and diastolic (congestive) heart failure; E78.2 Mixed hyperlipidemia

== ENCOUNTER 2024-08-09 14:36 | Inpatient (IN) | payer MEDICARE, BC ==
[~2024-08-09] VITALS: Ht 165.1 cm; Wt 97.1 kg
[~2024-08-09 14:36] MED LIST changes: -BUME1TAB3 PO; -JARD1TAB PO; -MAGN400T35 PO; -OMEP-173 PO; -SPIR-10 PO
[2024-08-09 18:01] LABS: BASO % 0.3 % (0.0-1.0); EOS % 0.1 % (0.0-3.0); HEMATOCRIT 36.7 % (42.0-52.0); HEMOGLOBIN 11.7 g/dl (13.5-17.5); LYMPH # 1.3 10^3/uL (1.5-5.0); LYMPH % 18.6 % (24.0-44.0); MEAN CORPUSCULAR HEMOGLOBIN 28.1 pg (27.0-33.0); MEAN CORPUSCULAR HGB CONC 31.9 g/dl (32.0-36.5); MEAN CORPUSCULAR VOLUME 88.2 fl (80.0-96.0); MONO # 2.5 10^3/uL (0.0-0.8); MONO % 36.9 % (2.0-8.0); NEUTROPHILS # 2.7 10^3/uL (1.5-8.5); NEUTROPHILS % 40.3 % (36.0-66.0); RED BLOOD COUNT 4.16 10^6/uL (4.30-6.10); WHITE BLOOD COUNT 6.8 10^3/uL (4.0-10.0)
[2024-08-09 18:32] LABS: PLATELET COUNT, AUTOMATED 32 10^3/uL (150-450)
[2024-08-09 18:33] LABS: ALBUMIN 3.7 G/DL (3.2-5.2); BILIRUBIN,DIRECT 0.4 MG/DL (<0.4); BILIRUBIN,TOTAL 1.6 MG/DL (0.3-1.2); CREATININE FOR GFR 1.69 MG/DL (0.70-1.30); GLOMERULAR FILTRATION RATE 43.4 (>49); POTASSIUM SERUM 5.1 MMOL/L (3.5-5.1); TOTAL PROTEIN 6.5 G/DL (5.7-8.2)
[2024-08-09] MEDS ORDERED: ACETAMINOPHEN 325 MG TAB PO PRN (20:20)
[2024-08-09] MEDS ORDERED: MOM 30ML SUSPENSION UDC PO PRN (20:20)
[2024-08-09] MEDS: LR 1,000 ML IV SCH (20:35)
[2024-08-09] MEDS ORDERED: BUME1TAB3 PO (20:37)
[2024-08-09] MEDS ORDERED: JARD1TAB PO (20:37)
[2024-08-09] MEDS ORDERED: MAGN400T35 PO (20:37)
[2024-08-09] MEDS ORDERED: OMEP-173 PO (20:37)
[2024-08-09] MEDS ORDERED: SOTA120T PO (20:37)
[2024-08-09] MEDS ORDERED: SPIR-10 PO (20:37)
[2024-08-09] MEDS ORDERED: HOME MED LIST COMPLETE! XX SCH (20:40)
[2024-08-09] MEDS: SOTALOL HCL 80 MG TAB PO SCH (21:00)
[2024-08-09] MEDS: DOCUSATE SODIUM 100MG CAPSULE PO SCH (21:00)
[2024-08-09] MEDS: EZETIMIBE 10MG TABLET (ZETIA) PO SCH (21:00)
[2024-08-09 21:04] LABS: PLATELET COUNT, AUTOMATED 29 10^3/uL (150-450)
[2024-08-09] MEDS ORDERED: PILL CUTTER 1 EACH XX PRN (21:10)
[2024-08-09 21:24] LABS: D-DIMER QUANT 4.98 ug/mL (<0.5); INR 1.31; PARTIAL THROMBOPLASTIN TIME 40.5 SECONDS (24.8-34.2); PROTHROMBIN TIME 15.9 SECONDS (12.5-14.5)
[2024-08-09] MEDS: OMEPRAZOLE 20MG CAP PO SCH (21:54)
[2024-08-10] MEDS: ATORVASTATIN 20 MG TAB PO SCH (00:42)
[2024-08-10] MEDS: LR 250 ML IV ONE (05:05)
[2024-08-10 05:44] LABS: HEMATOCRIT 30.3 % (42.0-52.0); MEAN CORPUSCULAR HEMOGLOBIN 29.2 pg (27.0-33.0); MEAN CORPUSCULAR VOLUME 88.6 fl (80.0-96.0); RED BLOOD COUNT 3.42 10^6/uL (4.30-6.10); WHITE BLOOD COUNT 5.5 10^3/uL (4.0-10.0)
[2024-08-10 05:50] LABS: PLATELET COUNT, AUTOMATED 26 10^3/uL (150-450)
[2024-08-10 05:54] LABS: INR 1.31; PARTIAL THROMBOPLASTIN TIME 39.3 SECONDS (24.8-34.2); PROTHROMBIN TIME 15.9 SECONDS (12.5-14.5)
[2024-08-10 06:08] LABS: ALKALINE PHOSPHATASE 74 U/L (46-116); ALT/SGPT 25 U/L (7.0-40); AST/SGOT 13 U/L (<34); BILIRUBIN,DIRECT 0.7 MG/DL (<0.4); BILIRUBIN,TOTAL 1.9 MG/DL (0.3-1.2); BLOOD UREA NITROGEN 38 MG/DL (9-23); CALCIUM LEVEL 8.9 MG/DL (8.3-10.6); CARBON DIOXIDE LEVEL 24 MMOL/L (20-31); CHLORIDE LEVEL 111 MMOL/L (98-107); CREATININE FOR GFR 1.27 MG/DL (0.70-1.30); GLOMERULAR FILTRATION RATE > 60.0 (>49); GLUCOSE, FASTING 88 MG/DL (74-106); MAGNESIUM LEVEL 1.8 MG/DL (1.8-2.4); POTASSIUM SERUM 4.5 MMOL/L (3.5-5.1); SODIUM LEVEL 142 MMOL/L (136-145); TOTAL PROTEIN 5.2 G/DL (5.7-8.2)
[2024-08-10] MEDS: MAGNESIUM OXIDE 400MG TAB (MAG-OX) PO SCH (09:49)
[2024-08-10 10:20] VITALS: BP 118/69; TEMP 98.1; O2SAT 93
[2024-08-10 12:00] VITALS: BP 118/63; TEMP 98.1; O2SAT 97
[2024-08-10 12:20] LABS: HEPATITIS B SURFACE ANTIGEN NEGATIVE (NEGATIVE)
[2024-08-10 12:41] LABS: HEPATITIS C VIRUS ABY INDEX < 0.02 INDEX (<0.8)
[2024-08-10 12:42] LABS: HEPATITIS B CORE ANTIBODY IGM NEGATIVE (NEGATIVE)
[2024-08-10 13:40] LABS: HIV 1&2 SCREEN NEGATIVE (NEGATIVE)
[2024-08-10 14:34] LABS: BASO % 0.2 % (0.0-1.0); EOS % 0.4 % (0.0-3.0); HEMATOCRIT 32.7 % (42.0-52.0); HEMOGLOBIN 10.6 g/dl (13.5-17.5); LYMPH # 0.9 10^3/uL (1.5-5.0); LYMPH % 20.8 % (24.0-44.0); MEAN CORPUSCULAR HEMOGLOBIN 28.7 pg (27.0-33.0); MEAN CORPUSCULAR HGB CONC 32.4 g/dl (32.0-36.5); MEAN CORPUSCULAR VOLUME 88.6 fl (80.0-96.0); MONO # 1.6 10^3/uL (0.0-0.8); MONO % 34.2 % (2.0-8.0); NEUTROPHILS # 1.9 10^3/uL (1.5-8.5); NEUTROPHILS % 40.9 % (36.0-66.0); RED BLOOD COUNT 3.69 10^6/uL (4.30-6.10); WHITE BLOOD COUNT 4.5 10^3/uL (4.0-10.0)
[2024-08-10 14:39] LABS: PLATELET COUNT, AUTOMATED 31 10^3/uL (150-450)
[2024-08-10 20:47] VITALS: BP 111/60; TEMP 98.2; O2SAT 96
[2024-08-11 05:20] VITALS: BP 100/54; TEMP 98.1; O2SAT 96
[2024-08-11 05:54] LABS: HEMOGLOBIN 10.2 g/dl (13.5-17.5); MEAN CORPUSCULAR HEMOGLOBIN 28.5 pg (27.0-33.0); MEAN CORPUSCULAR HGB CONC 31.9 g/dl (32.0-36.5); MEAN CORPUSCULAR VOLUME 89.4 fl (80.0-96.0); RED BLOOD COUNT 3.58 10^6/uL (4.30-6.10); WHITE BLOOD COUNT 4.9 10^3/uL (4.0-10.0)
[2024-08-11 05:58] LABS: PLATELET COUNT, AUTOMATED 30 10^3/uL (150-450)
[2024-08-11 06:22] LABS: ALBUMIN 3.1 G/DL (3.2-5.2); ALKALINE PHOSPHATASE 76 U/L (46-116); ALT/SGPT 27 U/L (7.0-40); AST/SGOT 13 U/L (<34); BILIRUBIN,DIRECT 0.6 MG/DL (<0.4); BILIRUBIN,TOTAL 1.8 MG/DL (0.3-1.2); BLOOD UREA NITROGEN 22 MG/DL (9-23); CARBON DIOXIDE LEVEL 26 MMOL/L (20-31); CHLORIDE LEVEL 109 MMOL/L (98-107); CREATININE FOR GFR 1.08 MG/DL (0.70-1.30); GLOMERULAR FILTRATION RATE > 60.0 (>49); GLUCOSE, FASTING 97 MG/DL (74-106); POTASSIUM SERUM 4.7 MMOL/L (3.5-5.1); SODIUM LEVEL 141 MMOL/L (136-145); TOTAL PROTEIN 5.4 G/DL (5.7-8.2)
[2024-08-11 07:59] LABS: D-DIMER QUANT 3.19 ug/mL (<0.5); INR 1.26; PARTIAL THROMBOPLASTIN TIME 35.8 SECONDS (24.8-34.2); PROTHROMBIN TIME 15.4 SECONDS (12.5-14.5)
[2024-08-11 11:29] LABS: FOLATE 21.33 NG/ML (>5.4); VITAMIN B12 LEVEL 551 PG/ML (211-911)
[2024-08-11] MEDS ORDERED: LIDOCAINE 1% MDV 20ML VIAL As Ordered ONE (11:33)
[2024-08-11 12:13] LABS: IRON (FE) 32 UG/DL (65-175); PERCENT SATURATION 13.9 % (19.7-50.0); TOTAL IRON BINDING CAPACITY 230 UG/DL (250-425)
[2024-08-11 12:16] LABS: FERRITIN 328.6 NG/ML (10.5-307.3)
[2024-08-11 13:00] VITALS: BP 111/56; TEMP 97; O2SAT 95
[2024-08-11 20:00] VITALS: BP 114/57; TEMP 97.9; O2SAT 96
[2024-08-12 04:00] VITALS: BP 108/59; TEMP 97.9; O2SAT 97
[2024-08-12 05:45] LABS: HEMATOCRIT 31.4 % (42.0-52.0); HEMOGLOBIN 10.3 g/dl (13.5-17.5); MEAN CORPUSCULAR HEMOGLOBIN 29.3 pg (27.0-33.0); MEAN CORPUSCULAR HGB CONC 32.8 g/dl (32.0-36.5); MEAN CORPUSCULAR VOLUME 89.5 fl (80.0-96.0); RED BLOOD COUNT 3.51 10^6/uL (4.30-6.10)
[2024-08-12 05:50] LABS: PLATELET COUNT, AUTOMATED 36 10^3/uL (150-450)
[2024-08-12 06:16] LABS: ALBUMIN 3.2 G/DL (3.2-5.2); ALKALINE PHOSPHATASE 76 U/L (46-116); ALT/SGPT 24 U/L (7.0-40); AST/SGOT 8 U/L (<34); BILIRUBIN,DIRECT 0.6 MG/DL (<0.4); BILIRUBIN,TOTAL 1.6 MG/DL (0.3-1.2); BLOOD UREA NITROGEN 18 MG/DL (9-23); CALCIUM LEVEL 8.9 MG/DL (8.3-10.6); CARBON DIOXIDE LEVEL 26 MMOL/L (20-31); CHLORIDE LEVEL 107 MMOL/L (98-107); CREATININE FOR GFR 1.09 MG/DL (0.70-1.30); GLOMERULAR FILTRATION RATE > 60.0 (>49); GLUCOSE, FASTING 96 MG/DL (74-106); POTASSIUM SERUM 4.3 MMOL/L (3.5-5.1); SODIUM LEVEL 139 MMOL/L (136-145); TOTAL PROTEIN 5.5 G/DL (5.7-8.2)
[2024-08-12 08:00] VITALS: BP 105/64; TEMP 98.3; O2SAT 96
[2024-08-12 11:16] LABS: IMMUNOGLOBULIN A 198.7 MG/DL (40-350); IMMUNOGLOBULIN G 613 MG/DL (650-1600)
[2024-08-12 12:00] VITALS: BP 105/68; TEMP 98.8; O2SAT 98
[2024-08-12 14:07] LABS: PSA SCREENING 0.42 NG/ML (< 4.00)
[2024-08-12 14:12] LABS: CARCINOEMBRYONIC ANTIGEN < 2.0 NG/ML (<2.5)
[2024-08-12 14:26] LABS: CA19-9 TUMOR MARKER,CARBOHYDRA 16.9 U/ML (<35.0)
[2024-08-12 20:00] VITALS: BP 103/61; TEMP 98.1; O2SAT 96
[2024-08-13 03:20] VITALS: BP 101/63; TEMP 98.1; O2SAT 94
[2024-08-13 06:03] LABS: HEMATOCRIT 31.3 % (42.0-52.0); MEAN CORPUSCULAR HEMOGLOBIN 28.7 pg (27.0-33.0); MEAN CORPUSCULAR HGB CONC 31.9 g/dl (32.0-36.5); MEAN CORPUSCULAR VOLUME 89.7 fl (80.0-96.0); RED BLOOD COUNT 3.49 10^6/uL (4.30-6.10); WHITE BLOOD COUNT 4.2 10^3/uL (4.0-10.0)
[2024-08-13 06:05] LABS: PLATELET COUNT, AUTOMATED 42 10^3/uL (150-450)
[2024-08-13 06:25] LABS: BLOOD UREA NITROGEN 18 MG/DL (9-23); CALCIUM LEVEL 8.9 MG/DL (8.3-10.6); CARBON DIOXIDE LEVEL 28 MMOL/L (20-31); CHLORIDE LEVEL 107 MMOL/L (98-107); CREATININE FOR GFR 1.02 MG/DL (0.70-1.30); GLOMERULAR FILTRATION RATE > 60.0 (>49); GLUCOSE, FASTING 108 MG/DL (74-106); POTASSIUM SERUM 4.4 MMOL/L (3.5-5.1); SODIUM LEVEL 139 MMOL/L (136-145)
[2024-08-13 12:00] VITALS: BP 107/64; TEMP 97.9; O2SAT 95
[2024-08-13 16:23] LABS: EBV PCR QUAL Not Detected (Not Detected); EBV SOURCE QUAL Whole Blood
[2024-08-13 19:40] VITALS: BP 108/68; TEMP 97.2; O2SAT 97
[2024-08-14 03:30] VITALS: BP 98/57; TEMP 97.7; O2SAT 96
[2024-08-14 06:43] LABS: HEMATOCRIT 30.7 % (42.0-52.0); MEAN CORPUSCULAR HEMOGLOBIN 29.2 pg (27.0-33.0); MEAN CORPUSCULAR HGB CONC 32.6 g/dl (32.0-36.5); MEAN CORPUSCULAR VOLUME 89.8 fl (80.0-96.0); RED BLOOD COUNT 3.42 10^6/uL (4.30-6.10)
[2024-08-14 06:46] LABS: PLATELET COUNT, AUTOMATED 56 10^3/uL (150-450)
[2024-08-14 07:11] LABS: BLOOD UREA NITROGEN 18 MG/DL (9-23); CALCIUM LEVEL 8.6 MG/DL (8.3-10.6); CARBON DIOXIDE LEVEL 27 MMOL/L (20-31); CHLORIDE LEVEL 108 MMOL/L (98-107); CREATININE FOR GFR 0.97 MG/DL (0.70-1.30); GLOMERULAR FILTRATION RATE > 60.0 (>49); GLUCOSE, FASTING 100 MG/DL (74-106); POTASSIUM SERUM 4.2 MMOL/L (3.5-5.1); SODIUM LEVEL 139 MMOL/L (136-145)
[2024-08-14 07:57] VITALS: BP 117/63
[2024-08-14 12:00] VITALS: BP 143/82; TEMP 97.9; O2SAT 97
[2024-08-15 15:02] LABS: FREE KAPPA LIGHT CHAINS SERUM 23.4 mg/L (3.3-19.4); FREE LAMBDA LIGHT CHAINS SERUM 16.3 mg/L (5.7-26.3); KAPPA/LAMBDA RATIO SERUM 1.44 (0.26-1.65)
== END 2024-08-14 14:30 | disposition home or self-care (01) | DRG 813 ==
LOC: M ED 14:36 → M ED INP 14:37 → M MSPAV 08-10 10:19 → OBSVTOIN 08-12 11:30
PROVIDERS: ADMIT Student in an Organized Health Care Education/Training Program; ATTEND Family Medicine
PROC: 07DR3ZX Extraction of Iliac Bone Marrow, Percutaneous Approach, Diagnostic (ICD-10-PCS; principal; 2024-08-12)
DX: D69.6 Thrombocytopenia, unspecified (principal); N17.9 Acute kidney failure, unspecified; I50.42 Chronic combined systolic (congestive) and diastolic (congestive) heart failure; R04.2 Hemoptysis; D58.9 Hereditary hemolytic anemia, unspecified; I11.0 Hypertensive heart disease with heart failure; R63.4 Abnormal weight loss; R19.7 Diarrhea, unspecified; R73.03 Prediabetes; I25.10 Atherosclerotic heart disease of native coronary artery without angina pectoris; E78.5 Hyperlipidemia, unspecified; D72.819 Decreased white blood cell count, unspecified; K21.9 Gastro-esophageal reflux disease without esophagitis; D63.8 Anemia in other chronic diseases classified elsewhere; K44.9 Diaphragmatic hernia without obstruction or gangrene; K64.8 Other hemorrhoids; Z79.899 Other long term (current) drug therapy; Z79.82 Long term (current) use of aspirin

== ENCOUNTER → 2024-08-09 | Outpatient (REF) | payer MEDICARE, BC ==
[~2024-08-09] MED LIST changes: +BUME1TAB3 PO; +JARD1TAB PO; +MAGN400T35 PO; +OMEP-173 PO; +SPIR-10 PO
[2024-08-09 18:48] LABS: ACETONE/KETONE 0.25 MMOL/L (0.02-0.27); FERRITIN 485.1 NG/ML (10.5-307.3); PERCENT SATURATION 14.8 % (19.7-50.0)
== END ==
LOC: M LAB REF 17:41
PROVIDERS: ATTEND Internal Medicine
DX: I11.0 Hypertensive heart disease with heart failure (principal); D64.9 Anemia, unspecified; E11.69 Type 2 diabetes mellitus with other specified complication; I25.10 Atherosclerotic heart disease of native coronary artery without angina pectoris

== ENCOUNTER 2024-10-14 14:52 | Inpatient (IN) | payer MEDICARE, BC ==
[~2024-10-14] VITALS: Ht 165.1 cm; Wt 89.7 kg
[~2024-10-14 14:52] MED LIST changes: +BUME1TAB3 PO; +JARD1TAB PO; +MAGN400T35 PO; +OMEP-173 PO; +SPIR-10 PO
[2024-10-14 15:58] LABS: HEMATOCRIT 38.1 % (42.0-52.0); HEMOGLOBIN 12.3 g/dl (13.5-17.5); MEAN CORPUSCULAR HGB CONC 32.3 g/dl (32.0-36.5); MEAN CORPUSCULAR VOLUME 89.9 fl (80.0-96.0); RED BLOOD COUNT 4.24 10^6/uL (4.30-6.10)
[2024-10-14] MEDS: NS 500 ML IV ONE ×2 (16:09→18:57)
[2024-10-14 16:19] LABS: LIPASE 24 U/L (12-53)
[2024-10-14 16:23] LABS: ALKALINE PHOSPHATASE 64 U/L (40-129); ALT/SGPT 17 U/L (7.0-40); AST/SGOT < 8 U/L (<34); BILIRUBIN,DIRECT 0.5 MG/DL (<0.4); BILIRUBIN,TOTAL 1.3 MG/DL (0.3-1.2); BLOOD UREA NITROGEN 37 MG/DL (9-23); CARBON DIOXIDE LEVEL 30 MMOL/L (20-31); CHLORIDE LEVEL 101 MMOL/L (98-107); CREATININE FOR GFR 1.43 MG/DL (0.70-1.30); GLOMERULAR FILTRATION RATE 52.7 (>49); GLUCOSE, FASTING 124 MG/DL (74-106); POTASSIUM SERUM 3.6 MMOL/L (3.5-5.1); SODIUM LEVEL 137 MMOL/L (136-145); TOTAL PROTEIN 5.6 G/DL (5.7-8.2)
[2024-10-14] MEDS ORDERED: ISOVUE-370 76% 100ML VIAL As Ordered ONE (16:28)
[2024-10-14 16:37] LABS: CALCIUM LEVEL 14.4 MG/DL (8.3-10.6)
[2024-10-14 16:51] LABS: PLATELET COUNT, AUTOMATED 31 10^3/uL (150-450)
[2024-10-14 17:00] LABS: ATYPICAL LYMPH 2 % (0-5); BASOPHILS 1 % (0-1); LYMPHOCYTES 17 % (16-44); METAMYELOCYTES 1 % (0-0); MONOCYTES 12 % (0-5); MYELOCYTES 3 % (0-0); NEUTROPHILS 64 % (28-66); PLATELET ESTIMATE DECREASED (NORMAL)
[2024-10-14] MEDS: NS 2,630 ML in IV 1 EA IV ONE (17:00)
[2024-10-14 17:05] LABS: MAGNESIUM LEVEL 1.7 MG/DL (1.8-2.4); PHOSPHORUS LEVEL 4.3 MG/DL (2.4-5.1)
[2024-10-14 17:27] LABS: TOTAL 25(OH) VITAMIN D 34.1 NG/ML (20.0-100.0)
[2024-10-14 17:28] LABS: PTH INTACT < 6.3 PG/ML (18.5-88.0)
[2024-10-14] MEDS: LIDOCAINE 2% 5ML JELLY UROJET TOP ONE (18:10)
[2024-10-14 18:37] LABS: VENOUS O2 SATURATION 80.8 % (60.0-80.0); VENOUS PARTIAL PRESSURE CO2 49.1 mmHg (38.0-50.0); VENOUS PARTIAL PRESSURE O2 51.3 mmHg (30.0-50.0); VENOUS PH 7.358 UNITS (7.330-7.430); VENOUS TOTAL CO2 28.5 MMOL/L (24.0-28.0)
[2024-10-14] MEDS ORDERED: HOME MED LIST COMPLETE! XX SCH (19:05)
[2024-10-14 20:31] LABS: APPEARANCE, URINE CLEAR (CLEAR); BACTERIA, URINE AUTO NEGATIVE (NEGATIVE); BILIRUBIN, URINE AUTO NEGATIVE (NEGATIVE); BLOOD, URINE BLOOD NEGATIVE (NEGATIVE); COLOR, URINE STRAW (YELLOW); GLUCOSE, URINE (UA) AUTO NEGATIVE (NEGATIVE); KETONE, URINE AUTO NEGATIVE (NEGATIVE); LEUKOCYTE ESTERASE, URINE AUTO NEGATIVE (NEGATIVE); NITRITE, URINE AUTO NEGATIVE (NEGATIVE); PROTEIN, URINE AUTO NEGATIVE (NEGATIVE); RBC, URINE AUTO 1 /HPF (0-3); SPECIFIC GRAVITY URINE AUTO 1.027 (1.002-1.035); SQUAMOUS EPITHELIAL CELL UR AU 0 /HPF (0-6); UROBILINOGEN, URINE AUTO 0.2 mg/dL (0.0-2.0); WBC, URINE AUTO 1 /HPF (0-3)
[2024-10-14 20:58] LABS: CREATININE,RANDOM URINE 38.8 MG/DL
[2024-10-14] MEDS ORDERED: MAALOX 30 ML SUSP *UDC PO PRN (22:00)
[2024-10-14] MEDS ORDERED: MOM 30ML SUSPENSION UDC PO PRN (22:00)
[2024-10-14] MEDS ORDERED: ACETAMINOPHEN 325 MG TAB PO PRN (22:00)
[2024-10-14] MEDS: LR 1,000 ML IV SCH (22:06)
[2024-10-14] MEDS: SOTALOL HCL 80 MG TAB PO SCH (22:18)
[2024-10-14] MEDS: ENTRESTO 97-103MG TABLET (SACUBITRIL/VALSARTAN) PO SCH (22:18)
[2024-10-14] MEDS ORDERED: PILL CUTTER 1 EACH XX PRN (22:20)
[2024-10-14] MEDS: POTASSIUM CHLORIDE 10% LIQ 20MEQ/15ML UDC PO ONE (22:57)
[2024-10-14] MEDS: OMEPRAZOLE 20MG CAP PO SCH (22:57)
[2024-10-14] MEDS: ATORVASTATIN 20 MG TAB PO SCH (22:57)
[2024-10-14] MEDS: EZETIMIBE 10MG TABLET (ZETIA) PO SCH (22:58)
[2024-10-14] MEDS: MAGNESIUM OXIDE 400MG TAB (MAG-OX) PO SCH (22:58)
[2024-10-15] VITALS (7 sets, daily range): BP systolic 93–128; BP diastolic 53–72; TEMP 96.9–98.1; O2SAT 93–97
[2024-10-15 06:00] LABS: HEMATOCRIT 32.2 % (42.0-52.0); MEAN CORPUSCULAR HEMOGLOBIN 28.9 pg (27.0-33.0); MEAN CORPUSCULAR HGB CONC 31.4 g/dl (32.0-36.5); WHITE BLOOD COUNT 6.3 10^3/uL (4.0-10.0)
[2024-10-15 06:03] LABS: HEMOGLOBIN 10.1 g/dl (13.5-17.5); PLATELET COUNT, AUTOMATED 32 10^3/uL (150-450)
[2024-10-15 06:32] LABS: ALBUMIN 2.4 G/DL (3.2-5.2); ALKALINE PHOSPHATASE 47 U/L (40-129); ALT/SGPT 12 U/L (7.0-40); AST/SGOT < 8 U/L (<34); BLOOD UREA NITROGEN 27 MG/DL (9-23); CALCIUM LEVEL 12.8 MG/DL (8.3-10.6); CARBON DIOXIDE LEVEL 29 MMOL/L (20-31); CHLORIDE LEVEL 109 MMOL/L (98-107); CREATININE FOR GFR 1.13 MG/DL (0.70-1.30); GLOMERULAR FILTRATION RATE > 60.0 (>49); GLUCOSE, FASTING 103 MG/DL (74-106); POTASSIUM SERUM 4.4 MMOL/L (3.5-5.1); SODIUM LEVEL 143 MMOL/L (136-145); TOTAL PROTEIN 4.3 G/DL (5.7-8.2)
[2024-10-15] MEDS: DAPAGLIFLOZIN PROPANEDIOL 10MG TABLET (FARXIGA) PO SCH (09:00)
[2024-10-15 10:47] LABS: TOTAL 25(OH) VITAMIN D 26.5 NG/ML (20.0-100.0)
[2024-10-15] MEDS: LR 1,000 ML IV SCH (11:00)
[2024-10-15] MEDS ORDERED: oxyBUTYnin 5 MG TAB PO PRN (12:50)
[2024-10-15] MEDS: ZOLEDRONIC ACID 4 MG in IV 1 EA IV ONE (14:10)
[2024-10-15] MEDS: SOTALOL HCL 80 MG TAB PO SCH (21:16)
[2024-10-16] VITALS (7 sets, daily range): BP systolic 98–122; BP diastolic 51–69; TEMP 96.7–98.5; O2SAT 91–98
[2024-10-16 06:44] LABS: HEMATOCRIT 32.1 % (42.0-52.0); HEMOGLOBIN 10.2 g/dl (13.5-17.5); MEAN CORPUSCULAR HGB CONC 31.8 g/dl (32.0-36.5); MEAN CORPUSCULAR VOLUME 91.2 fl (80.0-96.0); RED BLOOD COUNT 3.52 10^6/uL (4.30-6.10); WHITE BLOOD COUNT 7.2 10^3/uL (4.0-10.0)
[2024-10-16 06:46] LABS: PLATELET COUNT, AUTOMATED 41 10^3/uL (150-450)
[2024-10-16 07:14] LABS: ALBUMIN 2.6 G/DL (3.2-5.2); ALKALINE PHOSPHATASE 47 U/L (40-129); ALT/SGPT < 9 U/L (7.0-40); AST/SGOT < 8 U/L (<34); BILIRUBIN,TOTAL 1.1 MG/DL (0.3-1.2); BLOOD UREA NITROGEN 23 MG/DL (9-23); CALCIUM LEVEL 12.6 MG/DL (8.3-10.6); CARBON DIOXIDE LEVEL 32 MMOL/L (20-31); CHLORIDE LEVEL 107 MMOL/L (98-107); CREATININE FOR GFR 1.13 MG/DL (0.70-1.30); GLOMERULAR FILTRATION RATE > 60.0 (>49); GLUCOSE, FASTING 116 MG/DL (74-106); POTASSIUM SERUM 3.7 MMOL/L (3.5-5.1); SODIUM LEVEL 142 MMOL/L (136-145); TOTAL PROTEIN 4.7 G/DL (5.7-8.2)
[2024-10-16] MEDS: NS 1,000 ML IV SCH (10:35)
[2024-10-16] MEDS: FUROSEMIDE 40MG/4ML VIAL IV SCH (10:35)
[2024-10-16] MEDS: CALCITONIN NASAL SPRAY 3.7ML BTL SCH (14:30)
[2024-10-17] VITALS (7 sets, daily range): BP systolic 90–115; BP diastolic 46–60; TEMP 97.4–98.2; O2SAT 94–97
[2024-10-17 06:47] LABS: HEMATOCRIT 30.7 % (42.0-52.0); HEMOGLOBIN 9.5 g/dl (13.5-17.5); MEAN CORPUSCULAR HEMOGLOBIN 28.4 pg (27.0-33.0); MEAN CORPUSCULAR HGB CONC 30.9 g/dl (32.0-36.5); MEAN CORPUSCULAR VOLUME 91.6 fl (80.0-96.0); RED BLOOD COUNT 3.35 10^6/uL (4.30-6.10); WHITE BLOOD COUNT 5.4 10^3/uL (4.0-10.0)
[2024-10-17 06:48] LABS: PLATELET COUNT, AUTOMATED 52 10^3/uL (150-450)
[2024-10-17 07:22] LABS: ALBUMIN 2.3 G/DL (3.2-5.2); ALKALINE PHOSPHATASE 40 U/L (40-129); ALT/SGPT < 9 U/L (7.0-40); AST/SGOT < 8 U/L (<34); BILIRUBIN,TOTAL 0.9 MG/DL (0.3-1.2); BLOOD UREA NITROGEN 26 MG/DL (9-23); CALCIUM LEVEL 10.2 MG/DL (8.3-10.6); CARBON DIOXIDE LEVEL 30 MMOL/L (20-31); CHLORIDE LEVEL 108 MMOL/L (98-107); CREATININE FOR GFR 1.17 MG/DL (0.70-1.30); GLOMERULAR FILTRATION RATE > 60.0 (>49); GLUCOSE, FASTING 108 MG/DL (74-106); POTASSIUM SERUM 3.3 MMOL/L (3.5-5.1); SODIUM LEVEL 143 MMOL/L (136-145); TOTAL PROTEIN 4.1 G/DL (5.7-8.2)
[2024-10-17] MEDS: POTASSIUM CHLORIDE 10MEQ SR TABLET PO SCH (10:40)
[2024-10-18 03:24] VITALS: BP 99/51; TEMP 98.4; O2SAT 93
[2024-10-18 05:50] LABS: HEMATOCRIT 30.5 % (42.0-52.0); HEMOGLOBIN 9.7 g/dl (13.5-17.5); MEAN CORPUSCULAR HEMOGLOBIN 28.9 pg (27.0-33.0); MEAN CORPUSCULAR HGB CONC 31.8 g/dl (32.0-36.5); MEAN CORPUSCULAR VOLUME 90.8 fl (80.0-96.0); RED BLOOD COUNT 3.36 10^6/uL (4.30-6.10); WHITE BLOOD COUNT 5.1 10^3/uL (4.0-10.0)
[2024-10-18 06:01] LABS: PLATELET COUNT, AUTOMATED 57 10^3/uL (150-450)
[2024-10-18 06:17] LABS: ALBUMIN 2.5 G/DL (3.2-5.2); ALKALINE PHOSPHATASE 45 U/L (40-129); ALT/SGPT 12 U/L (7.0-40); AST/SGOT < 8 U/L (<34); BILIRUBIN,TOTAL 1.1 MG/DL (0.3-1.2); BLOOD UREA NITROGEN 29 MG/DL (9-23); CALCIUM LEVEL 8.5 MG/DL (8.3-10.6); CARBON DIOXIDE LEVEL 27 MMOL/L (20-31); CHLORIDE LEVEL 106 MMOL/L (98-107); CREATININE FOR GFR 1.16 MG/DL (0.70-1.30); GLOMERULAR FILTRATION RATE > 60.0 (>49); GLUCOSE, FASTING 163 MG/DL (74-106); POTASSIUM SERUM 3.7 MMOL/L (3.5-5.1); SODIUM LEVEL 141 MMOL/L (136-145); TOTAL PROTEIN 4.6 G/DL (5.7-8.2)
[2024-10-18 07:37] VITALS: BP 100/52; TEMP 98.3; O2SAT 94
[2024-10-18 08:32] VITALS: BP 100/52
[2024-10-18 12:22] LABS: FREE KAPPA LIGHT CHAINS SERUM 24.2 mg/L (3.3-19.4); FREE LAMBDA LIGHT CHAINS SERUM 17.9 mg/L (5.7-26.3); KAPPA/LAMBDA RATIO SERUM 1.35 (0.26-1.65)
== END 2024-10-18 12:44 | disposition home health service (06) | DRG 641 ==
LOC: M ED 14:52 → M ED INP 20:47 → M PCU 22:46
PROVIDERS: ADMIT Family Medicine; ATTEND Internal Medicine
DX: E83.52 Hypercalcemia (principal); N17.9 Acute kidney failure, unspecified; I50.22 Chronic systolic (congestive) heart failure; I11.0 Hypertensive heart disease with heart failure; E78.5 Hyperlipidemia, unspecified; K44.9 Diaphragmatic hernia without obstruction or gangrene; I25.5 Ischemic cardiomyopathy; D64.9 Anemia, unspecified; I25.10 Atherosclerotic heart disease of native coronary artery without angina pectoris; R19.7 Diarrhea, unspecified; D69.6 Thrombocytopenia, unspecified; E87.6 Hypokalemia; Z95.810 Presence of automatic (implantable) cardiac defibrillator; D75.9 Disease of blood and blood-forming organs, unspecified; E83.42 Hypomagnesemia; G89.29 Other chronic pain; Z79.899 Other long term (current) drug therapy; Z95.1 Presence of aortocoronary bypass graft; K80.20 Calculus of gallbladder without cholecystitis without obstruction

== ENCOUNTER → 2024-10-21 | Outpatient (REF) | payer MEDICARE, OTHER ==
[2024-10-23 04:01] LABS: HCG SERUM TUMOR MARKER QUANT < 5 mIU/mL (<5)
[2024-10-24 13:38] LABS: ANA SCREEN, IFA NEGATIVE (NEGATIVE)
== END ==
LOC: M LAB REF 16:24
PROVIDERS: ATTEND Internal Medicine
DX: D61.818 Other pancytopenia (principal); E83.52 Hypercalcemia; N44.2 Benign cyst of testis; R93.49 Abnormal radiologic findings on diagnostic imaging of other urinary organs

== ENCOUNTER → 2024-10-25 | Outpatient (CLI) | payer MEDICARE, BC | LOC: M RAD 10:28 | PROVIDERS: ATTEND Internal Medicine | DX: N50.812 Left testicular pain (principal); N43.3 Hydrocele, unspecified ==

== ENCOUNTER → 2024-11-21 | Outpatient (REF) | payer MEDICARE, OTHER ==
[2024-11-21 16:47] LABS: HEMATOCRIT 29.6 % (42.0-52.0); HEMOGLOBIN 9.7 g/dl (13.5-17.5); MEAN CORPUSCULAR HEMOGLOBIN 28.1 pg (27.0-33.0); MEAN CORPUSCULAR HGB CONC 32.8 g/dl (32.0-36.5); MEAN CORPUSCULAR VOLUME 85.8 fl (80.0-96.0); RED BLOOD COUNT 3.45 10^6/uL (4.30-6.10); WHITE BLOOD COUNT 12.2 10^3/uL (4.0-10.0)
[2024-11-21 17:18] LABS: SOURCE PERIPHERAL SMEAR
[2024-11-21 17:25] LABS: ATYPICAL LYMPH 8 % (0-5); LYMPHOCYTES 9 % (16-44); METAMYELOCYTES 2 % (0-0); MONOCYTES 8 % (0-5); MYELOCYTES 4 % (0-0); NEUTROPHILS 64 % (28-66); PLATELET ESTIMATE DECREASED (NORMAL); PROMYELOCYTES 1 % (0-0)
[2024-11-21 17:26] LABS: ANISOCYTOSIS 2+
[2024-11-21 17:30] LABS: PLATELET COUNT, AUTOMATED 16 10^3/uL (150-450)
[2024-11-21 17:41] LABS: BURR CELLS 1+
[2024-11-21 17:43] LABS: POIKILOCYTOSIS 1+
[2024-11-21 17:47] LABS: POLYCHROMASIA 1+
== END ==
LOC: M LAB REF 16:10
PROVIDERS: ATTEND Internal Medicine
DX: D61.818 Other pancytopenia (principal)